=== PATIENT | female | born 2005 | race Caucasian/White ===

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

== ENCOUNTER → 2025-06-16 | Outpatient (CLI) | payer OTHER, SELFPAY ==
--- OUTSIDE RECORDS SUMMARY | 2025-06-16 10:27 | XMS RPT_ITS | CCD ---
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 measuring 0.3 x 0.2 x 0.1 cm. The specimen is submitted in toto in one cassette. LMP Normal [facility] MR Ankle - left WO contrasto n 07-02-2023 IMPRESSION: 1. Negative for internal derangement of the ankle. 2. Os trigonum without evidence of stress changes. 3. Small ganglion cyst in the posterior ankle. Transcribe Date/Time: Jul 02 2023 8:36A Dictated by: BRENDA COATS MD This examination was interpreted and the report reviewed and electronically signed by: BRENDA COATS MD on Jul 02 2023 9:04AM EST Thank you for allowing us to participate in the care of your patient. Should there be any questions regarding this interpretation, please call . If you are unable to reach us at the number above, please feel free to contact [facility] at [phone]. DIVISION OF RADIOLOGY * * *Final Report* * * DATE OF EXAM: Jul 01 2023 3:00PM DUM 0163 - MRI ANKLE WO IVCON LT / PROCEDURE REASON: Chronic left Ankle pain * * * * Physician Interpretation * * * * RESULT: CLINICAL HISTORY: Chronic left Ankle pain COMPARISON: Ankle radiographs 06/15/2023 PROCEDURE COMMENTS: MRI ANKLE WO IVCON LT FINDINGS: LIGAMENTS: SYNDESMOTIC LIGAMENTS: Normal. ANTERIOR TALOFIBULAR LIGAMENT: Normal. POSTERIOR TALOFIBULAR LIGAMENT: Normal. CALCANEOFIBULAR LIGAMENT: Normal. DELTOID LIGAMENT: Normal. SPRING LIGAMENT: Normal. TENDONS: POSTEROLATERAL (Achilles & peroneal tendons): Normal. POSTERIOR (tibialis posterior, flexor digitorum, flexor hallucis): Normal. ANTERIOR (tibialis anterior, extensor hallucis, extensor digitorum): Normal. JOINTS: TIBIOTALAR: Normal. SUBTALAR: Normal. CALCANEONAVICULAR/TALONAV ICULAR: Normal. ARTICULAR CARTILAGE: Normal. MARROW: Normal. There is an os trigonum without evidence of stress changes. GROWTH PLATES: Closed. JOINT EFFUSION: Small talonavicular effusion. No tibiotalar effusion. MUSCLES/SOFT TISSUES: 8 x 7 x 11 mm cystic structure in the posterior ankle. This is posterior to the distal fibula and superolateral to the os trigonum. DIVISION OF RADIOLOGY Provider, [facility] - 07/02/2023 * * *Final Report* * * DATE OF EXAM: Jul 01 2023 3:00PM DUM 0163 - MRI ANKLE WO IVCON LT / PROCEDURE REASON: Chronic left Ankle pain * * * * Physician Interpretation * * * * RESULT: CLINICAL HISTORY: Chronic left Ankle pain COMPARISON: Ankle radiographs 06/15/2023 PROCEDURE COMMENTS: MRI ANKLE WO IVCON LT FINDINGS: LIGAMENTS: SYNDESMOTIC LIGAMENTS: Normal. ANTERIOR TALOFIBULAR LIGAMENT: Normal. POSTERIOR TALOFIBULAR LIGAMENT: Normal. CALCANEOFIBULAR LIGAMENT: Normal. DELTOID LIGAMENT: Normal. SPRING LIGAMENT: Normal. TENDONS: POSTEROLATERAL (Achilles & peroneal tendons): Normal. POSTERIOR (tibialis posterior, flexor digitorum, flexor hallucis): Normal. ANTERIOR (tibialis anterior, extensor hallucis, extensor digitorum): Normal. JOINTS: TIBIOTALAR: Normal. SUBTALAR: Normal. CALCANEONAVICULAR/TALONAV ICULAR: Normal. ARTICULAR CARTILAGE: Normal. MARROW: Normal. There is an os trigonum without evidence of stress changes. GROWTH PLATES: Closed. JOINT EFFUSION: Small talonavicular effusion. No tibiotalar effusion. MUSCLES/SOFT TISSUES: 8 x 7 x 11 mm cystic structure in the posterior ankle. This is posterior to the distal fibula and superolateral to the os trigonum. IMPRESSION IMPRESSION: 1. Negative for internal derangement of the ankle. 2. Os trigonum without evidence of stress changes. 3. Small ganglion cyst in the posterior ankle. Transcribe Date/Time: Jul 02 2023 8:36A Dictated by: BRENDA COATS MD This examination was interpreted and the report reviewed and electronically signed by: BRENDA COATS MD on Jul 02 2023 9:04AM EST Thank you for allowing us to participate in the care of your patient. Should there be any questions regarding this interpretation, please call . If you are unable to reach us at the number above, please feel free to contact [facility] at [phone]. [facility] MR Ankle - left WO contrastO rdered By: [facility] Provider on 07-02-2023 [facility] MR Ankle - left WO contrasto n 07-01-2023 Radiology Study observation (narrative) [facility] MRI ANKLE WO IVCON LTon 06-19 MRI ANKLE WO IVCON LT * * *Final Report* * * DATE OF EXAM: Jul 01 2023 3:00PM DUM 0163 - MRI ANKLE WO IVCON LT / PROCEDURE REASON: Chronic left Ankle pain * * * * Physician Interpretation * * * * RESULT: CLINICAL HISTORY: Chronic left Ankle pain COMPARISON: Ankle radiographs 06/15/2023 PROCEDURE COMMENTS: MRI ANKLE WO IVCON LT FINDINGS: LIGAMENTS: SYNDESMOTIC LIGAMENTS: Normal. ANTERIOR TALOFIBULAR LIGAMENT: Normal. POSTERIOR TALOFIBULAR LIGAMENT: Normal. CALCANEOFIBULAR LIGAMENT: Normal. DELTOID LIGAMENT: Normal. SPRING LIGAMENT: Normal. TENDONS: POSTEROLATERAL (Achilles and peroneal tendons): Normal. POSTERIOR (tibialis posterior, flexor digitorum, flexor hallucis): Normal. ANTERIOR (tibialis anterior, extensor hallucis, extensor digitorum): Normal. JOINTS: TIBIOTALAR: Normal. SUBTALAR: Normal. CALCANEONAVICULAR/TALONAV ICULAR: Normal. ARTICULAR CARTILAGE: Normal. MARROW: Normal. There is an os trigonum without evidence of stress changes. GROWTH PLATES: Closed. JOINT EFFUSION: Small talonavicular effusion. No tibiotalar effusion. MUSCLES/SOFT TISSUES: 8 x 7 x 11 mm cystic structure in the posterior ankle. This is posterior to the distal fibula and superolateral to the os trigonum. IMPRESSION: 1. Negative for internal derangement of the ankle. 2. Os trigonum without evidence of stress changes. 3. Small ganglion cyst in the posterior ankle. Transcribe Date/Time: Jul 02 2023 8:36A Dictated by: BRENDA COATS MD This examination was interpreted and the report reviewed and electronically signed by: BRENDA COATS MD on Jul 02 2023 9:04AM EST Thank you for allowing us to participate in the care of your patient. Should there be any questions regarding this interpretation, please call . If you are unable to reach us at the number above, please feel free to contact [facility] at [phone]. [id number] Normal [facility] XR ANKLE 3V AP/LAT/OBL LTon 06-15-2023 XR ANKLE 3V AP/LAT/OBL LT * * *Final Report* * * DATE OF EXAM: Jun 15 2023 10:17AM [id number] [id number] - XR ANKLE 3V AP/LAT/OBL LT / PROCEDURE REASON: Pain * * * * Physician Interpretation * * * * TECHNIQUE: XR ANKLE 3V AP/LAT/OBL LT HISTORY: Pain COMPARISON: None RESULT: The ankle mortise and joint spaces are normal. Normal bone alignment. No evidence of fracture. No tibiotalar joint effusion. No soft tissue swelling. IMPRESSION: No osseous abnormality in the left ankle. Policy Change Clerk: PSCB Transcribe Date/Time: Jun 15 2023 10:16A Dictated by : OTILIA LORENZO MD This examination was interpreted and the report reviewed and electronically signed by: OTILIA LORENZO MD on Jun 15 2023 10:20AM EST [id number] Normal [facility] C Reactive Protein, Serumon 03-17-2023 CRP [Mass/Vol] 0.37 mg/dL MG-Pediatr i [facility] A Work Phone: Comment on above: REF VALUE< 1.00 C-REACTIVE PROTEINon 023 C-REACTIVE PROTEIN 0.37 mg/dL Normal [facility]3] Comment on above: Result Comment: REF VALUE < 1.00 Performed By: #### C RP #### [address] [address] CBC AND DIFFERENTIALon 03-17 % AUTOMATED IMMATURE GRAN 0.2 % Normal 0.0 - 1.0 [facility]3] Comment on above: Result Comment: Nurys ture Granulocyte Count (IG) includes promyelocytes, myelocytes and metamyelocytes but does not include bands. Percent differential counts (%) should be interpreted in the context of the absolute cell counts (cells/L). Performed By: #### C BCDF #### [address] [address] Basophils (Bld) [#/Vol] 0.03 10*3/uL Normal 0.00 - 0.10 [facility]3] Comment on above: Performed By: #### C BCDF #### [address] [address] Basophils/100 WBC (Bld) 0.6 % Normal 0.0 - 1.0 [facility] Comment on above: Performed By: #### C BCDF #### [address] [address] Eosinophils (Bld) [#/Vol] 0.08 10*3/uL Normal 0.00 - 0.70 [facility]3] Comment on above: Performed By: #### C BCDF #### [address] [place] [address] Eosinophils/100 WBC (Bld) 1.6 % Normal 0.0 - 5.0 [facility]3] Comment on above: Performed By: #### C BCDF #### [address] [place] [address] Erythrocyte distribution width (RBC) [Ratio] 12.1 % Normal 11.5 - 14.5 [facility]3] Comment on above: Performed By: #### C BCDF #### [address] [place] [address] Hematocrit (Bld) [Volume fraction] 40.0 % Normal 36.0 - 46.0 [facility]3] Comment on above: Performed By: #### C BCDF #### [address] [place] [address] Hemoglobin (Bld) [Mass/Vol] 13.1 g/dL Normal 12.0 - 16.0 [facility]3] Comment on above: Performed By: #### C BCDF #### [address] [place] [address] Lymphocytes (Bld) [#/Vol] 0.87 10*3/uL Low 1.80 - 4.80 [facility]3] Comment on above: Performed By: #### C BCDF #### [address] [place] [address] Lymphocytes/100 WBC (Bld) 17.9 % Normal 28.0 - 48.0 [facility]3] Comment on above: Performed By: #### C BCDF #### [address] [place] [address] MCHC (RBC) [Mass/Vol] 32.8 g/dL Normal 31.0 - 37.0 [facility]3] Comment on above: Performed By: #### C BCDF #### [address] [place] [address] MCV (RBC) [Entitic vol] 90 fL Normal 78 - 102 [facility] Comment on above: Performed By: #### C BCDF #### [address] [place] [address] Monocytes (Bld) [#/Vol] 0.65 10*3/uL Normal 0.10 - 1.00 [facility]3] Comment on above: Performed By: #### C BCDF #### [address] [place] [address] Monocytes/100 WBC (Bld) 13.4 % Normal 3.0 - 9.0 [facility] Comment on above: Performed By: #### C BCDF #### [address] [place] [address] Neutrophils (Bld) [#/Vol] 3.21 10*3/uL Normal 1.20 - 7.70 [facility]3] Comment on above: Performed By: #### C BCDF #### [address] [place] [address] Neutrophils/100 WBC (Bld) 66.3 % Normal 33.0 - 69.0 [facility]3] Comment on above: Performed By: #### C BCDF #### [address] [place] [address] NUCLEATED RBC 0.0 /100 WBC Normal 0.0 - 0.0 [facility]3] Comment on above: Performed By: #### C BCDF #### [address] [place] [address] Platelets (Bld) [#/Vol] 256 10*3/uL Normal 150 - 400 [facility]3] Comment on above: Performed By: #### C BCDF #### [address] [place] [address] RBC 4.45 x10E12/L Normal 4.10 - 5.20 [facility]3] Comment on above: Performed By: #### C BCDF #### [address] [place] [address] WBC (Bld) [#/Vol] 4.9 10*3/uL Normal 4.5 - 13.5 [facility]3] Comment on above: Performed By: #### C BCDF #### [address] [place] [address] COMPREHENSIVE PANELon 2022 Albumin [Mass/Vol] 4.6 g/dL Normal 3.4 - 5.0 [facility]3] Comment on above: Performed By: #### C MP #### [address] [place] [address] ALP [Catalytic activity/Vol] 60 U/L Normal 33 - 80 [facility]3] Comment on above: Performed By: #### C MP #### [address] [place] [address] ALT [Catalytic activity/Vol] 17 U/L Normal 3 - 28 [facility]3] Comment on above: Result Comment: Mariposa ents treated with Sulfasalazine may generate falsely decreased results for ALT. Performed By: #### C MP #### [address] [place] [address] Anion gap [Moles/Vol] 12 mmol/L Normal 10 - 30 [facility]3] Comment on above: Performed By: #### C MP #### [address] [place] [address] AST [Catalytic activity/Vol] 22 U/L Normal 9 - 24 [facility]3] Comment on above: Performed By: #### C MP #### [address] [place] [address] Bilirubin [Mass/Vol] 0.4 mg/dL Normal 0.0 - 0.9 [facility]3] Comment on above: Performed By: #### C MP #### [address] [place] [address] Calcium [Mass/Vol] 9.5 mg/dL Normal 8.5 - 10.7 [facility]3] Comment on above: Performed By: #### C MP #### [address] [place] [address] Chloride [Moles/Vol] 104 mmol/L Normal 98 - 107 [facility]3] Comment on above: Performed By: #### C MP #### [address] [place] [address] Creatinine [Mass/Vol] 0.72 mg/dL Normal 0.50 - 0.90 [facility]3] Comment on above: Performed By: #### C MP #### [address] [place] [address] Glucose [Mass/Vol] 79 mg/dL Normal 74 - 99 [facility]3] Comment on above: Performed By: #### C MP #### [address] [place] [address] HCO3 (Bld) [Moles/Vol] 25 mmol/L Normal 18 - 27 [facility]3] Comment on above: Performed By: #### C MP #### [address] [place] [address] Potassium [Moles/Vol] 4.0 mmol/L Normal 3.5 - 5.3 [facility]3] Comment on above: Performed By: #### C MP #### [address] [place] [address] Protein [Mass/Vol] 7.6 g/dL Normal 6.2 - 7.7 [facility]3] Comment on above: Performed By: #### C MP #### [address] [place] [address] Sodium [Moles/Vol] 137 mmol/L Normal 136 - 145 [facility]3] Comment on above: Performed By: #### C MP #### [address] [place] [address] Urea nitrogen [Mass/Vol] 15 mg/dL Normal 6 - 23 [facility]3] Comment on above: Performed By: #### C MP #### [address] [place] [address] Complete Blood Count + Diffe rentialon 03-17-2023 Basophils/100 WBC (Bld) 0.6 % 0.0 - 1.0 M [facility] A Work Phone: Erythrocyte distribution width (RBC) [Ratio] 12.1 % See Below [facility] A Work Phone: Comment on above: Reference Range: 11. 5 - 14.5 Hematocrit (Bld) [Volume fraction] 40.0 % See Below -Pediatri [facility] A Work Phone: Comment on above: Reference Range: 36. 0 - 46.0 Hemoglobin (Bld) [Mass/Vol] 13.1 g/dL See Below -Pediatri [facility] A Work Phone: Comment on above: Reference Range: 12. 0 - 16.0 Lymphocytes/100 WBC (Bld) 17.9 % See Below -Pediatri [facility] A Work Phone: Comment on above: Reference Range: 28. 0 - 48.0 MCHC (RBC) [Mass/Vol] 32.8 g/dL See Below - Pediatri [facility] A Work Phone: Comment on above: Reference Range: 31. 0 - 37.0 MCV (RBC) [Entitic vol] 90 fL 78 - 102 M Pediatri [facility] A Work Phone: Monocytes/100 WBC (Bld) 13.4 % 3.0 - 9.0 M Pediatri [facility] A Work Phone: Neutrophils/100 WBC (Bld) 66.3 % See Below -Pediatri [facility] A Work Phone: Comment on above: Reference Range: 33. 0 - 69.0 Platelets (Bld) [#/Vol] 256 10*3/uL 150 - 400 MG-Pediatri [facility] A Work Phone: RBC (Bld) [#/Vol] 4.45 {x10E12/L} See Below [facility] -[facility]ri [facility] A Work Phone: Comment on above: Reference Range: 4.1 0 - 5.20 WBC (Bld) [#/Vol] 4.9 10*3/uL 4.5 - 13.5 MG-Ped iatri [facility] A Work Phone: Complete Blood Count + Differential 0.03 {x10E9/L} See Below [facility] A Work Phone: Comment on above: Reference Range: 0.0 0 - 0.10 Complete Blood Count + Differential 0.08 {x10E9/L} See Below [facility] A Work Phone: Comment on above: Reference Range: 0.0 0 - 0.70 Complete Blood Count + Differential 0.65 {x10E9/L} See Below [facility] A Work Phone: Comment on above: Reference Range: 0.1 0 - 1.00 Complete Blood Count + Differential 0.87 {x10E9/L} below low threshold See Below [facility] A Work Phone: Comment on above: Reference Range: 1.8 0 - 4.80 Complete Blood Count + Differential 3.21 {x10E9/L} See Below [facility] A Work Phone: Comment on above: Reference Range: 1.2 0 - 7.70 Complete Blood Count + Differential 1.6 % 0.0 - 5.0 [facility] A Work Phone: Complete Blood Count + Differential 0.2 % 0.0 - 1.0 [facility] A Work Phone: Comment on above: Immature Granulocyte Count (IG) includes promyelocytes, myelocytes and metamyelocytes but does not include bands. Percent differential counts (%) should be interpreted in the context of the absolute cell counts (cells/L). Complete Blood Count + Differential 0.0 {/100_WBC} 0.0 - 0.0 [facility] A Work Phone: Laboratory - Chemistry and C hemistry - challengeon 03-17-2023 Albumin BCP dye [Mass/Vol] 4.6 g/dL 3.4 - 5.0 [facility] A Work Phone: ALP [Catalytic activity/Vol] 60 U/L 33 - 80 [facility] A Work Phone: ALT With P-5'-P [Catalytic activity/Vol] 17 U/L 3 - 28 [facility]-Pedi atri [facility] A Work Phone: Comment on above: Patients treated wit h Sulfasalazine may generate falsely decreased results for ALT. Anion gap [Moles/Vol] 12 mmol/L 10 - 30 [facility]- Pediatri [facility] A Work Phone: AST With P-5'-P [Catalytic activity/Vol] 22 U/L 9 - 24 [facility]edi atri [facility] A Work Phone: Bilirubin [Mass/Vol] 0.4 mg/dL 0.0 - 0.9 MG-P ediatri [facility] A Work Phone: Calcium [Mass/Vol] 9.5 mg/dL 8.5 - 10.7 MG-Ped iatri [facility] A Work Phone: Chloride [Moles/Vol] 104 mmol/L 98 - 107 MG-P ediatri [facility] A Work Phone: CO2 [Moles/Vol] 25 mmol/L 18 - 27 [facility] ri [facility] A Work Phone: Creatinine [Mass/Vol] 0.72 mg/dL See Below MG- Pediatri [facility] A Work Phone: Comment on above: Reference Range: 0.5 0 - 0.90 Glucose [Mass/Vol] 79 mg/dL 74 - 99 [facility] iatri [facility] A Work Phone: Potassium [Moles/Vol] 4.0 mmol/L 3.5 - 5.3 MG- [facility]ri [facility] A Work Phone: Protein [Mass/Vol] 7.6 g/dL 6.2 - 7.7 [facility]-Ped iatri [facility] A Work Phone: Sodium [Moles/Vol] 137 mmol/L 136 - 145 [facility]-Ped iatri [facility] A Work Phone: Urea nitrogen [Mass/Vol] 15 mg/dL 6 - 23 MG-Pediatri [facility] A Work Phone: Peds Gastroenterology - Init nazanincristhiann 03-17-2023 Peds Gastroenterology - Initial Diagnoses/Problems Assessed Abdominal pain (789.00) (R10.9) Orders Abdominal pain Start: Dicyclomine HCl - 10 MG Oral Capsule; TAKE 1 CAPSULE 3-4 TIMES DAILY NEEDED FOR ABDOMINAL pain Rx By: Danna Hand; Dispense: 15 Days ; #:60 Capsule; Refill: 3;For: Abdominal pain; INDER = N; Verified Transmission to [address]; Last Updated By: [employer]; 03/17/2023 11:24:30 AM C Reactive Protein, Serum; Status:Active; Requested for:17Mar2023; Perform:Lab Services - Lab To Draw (Blood Test); Due:15Jun2023;Ordered; For:Abdominal pain; Ordered By:Danna Hand; Start: Famotidine 20 MG Oral Tablet; TAKE 1 TABLET BY MOUTH TWICE DAILY Rx By: Danna Hand; Dispense: 30 Days ; #:60 Tablet; Refill: 4;For: Abdominal pain; INDER = N; Verified Transmission to [address]; Last Updated By: [employer]; 03/17/2023 11:24:32 AM Complete Blood Count + Differential; Status:Active; Requested for:17Mar2023; Perform:Lab Services - Lab To Draw (Blood Test); Due:15Jun2023;Ordered; For:Abdominal pain; Ordered By:Danna Hand; Comprehensive Metabolic Panel; Status:Active; Requested for:17Mar2023; Perform:Lab Services - Lab To Draw (Blood Test); Due:15Jun2023;Ordered; For:Abdominal pain; Ordered By:Danna Hand; Sedimentation Rate, Erythrocyte; Status:Active; Requested for:17Mar2023; Perform:Lab Services - Lab To Draw (Blood Test); Due:15Jun2023;Ordered; For:Abdominal pain; Ordered By:Danna Hand; TISSUE TRANSGLUTAMINIASE AB, IGA WITH ASSESSMENT OF TOTAL IgA; Status:Active; Requested for:[id number]; Perform:Lab Services - Lab To Draw (Blood Test); Due:[id number];Ordered; For:Abdominal pain; Ordered By:Danna Hand; Patient Discussion/Summary It was nice to see LENARD in clinic today. Please call or email the GI office at [facility] if you have any questions or concerns. Please ask to speak with my nurse, Tameka Office number: [phone] Email: [email or web address] Fax number: [phone] To schedule an appointment, call [phone] Schedule a follow-up Pediatric Gastroenterology appointment with DR. HAND in 4 months. 1. Obtain laboratory tests. If there are any concerns, you will receive a call with the results. If the tests are normal and there is no change in plan, you will receive the results by mail or patient portal. 2. Stop omeprazole 3. Take Pepcid 20mg twice daily 4. Take Bentyl as needed for belly pain 5. If no improvement after one month, call my office and we will schedule the scope Provider Impressions LENARD CONTRERAS was in the [facility] for abdominal pain. Differential is broad - includes GERD, gastritis, PUD, celiac disease, H. pylori, FGID. Recommend trial of Pepcid and Bentyl as well as blood work. If no improvement will plan for upper endoscopy for further evaluation. Rest of plan in discussion summary. Danna Hand MD Pediatric Gastroenterology, Hepatology, and Nutrition History of Present Illness LENARD CONTRERAS is a 17 year-old female who was seen in the [facility] on Mar 17, 2023 at the request of Dr. Junito Mason for the chief complaint of abdominal pain. A report with my findings is being sent via written or electronic means to Dr. Junito Mason with my recommendations for treatment. History was obtained from mother and patient. Abdominal pain has been going on for many years ago and has gotten worse recently such that she went to her PCP for further evaluation. She was prescribed omeprazole 20mg once daily with some improvement but not resolution of her symptoms. She has been on the medication for 2-3 months now.. In the past she took out fried foods 5-6 years ago and also limited dairy and took Lactaid pills which helped for a couple of weeks. Other food triggers include caffeine, fried and greasy foods. Pain occurs at least once a day and can occur any time of the day and located diffusely. No vomiting, diarrhea, constipation, blood in stool, weight loss or difficulty gaining weight. No dysphagia. She is also on a probiotic - culturelle FH: great grandmother with bleeding ulcers. No family history of celiac disease, iBD (although great-grandmother had intestinal ulcers s/p colectomy) SH: lives at home with parents, senior year in [employer]: healthy Omeprazole 20mg once a day Review of Systems Constitutional: no change in appetite and no weight loss. Eyes: no sclera icterus and no discharge. ENT: no sinus or nasal congestion. Cardiovascular: no edema. Respiratory: no cough. Gastrointestinal: as noted in HPI. Genitourinary: no dysuria. Musculoskeletal: no joint swelling. Integumentary: no rashes. Neurological: no dizziness. Hematologic/Lymphatic: no excessive bruising. Psychiatric: no sleep disturbance. All other systems have been rev (more content not included)... Normal [employer] SEDIMENTATION RATE, ERYTHROC YTEon 03-17-2023 SEDIMENTATION RATE, ERYTHROCYTE 10 mm/h Normal 0 - 20 [facility] (formerly [facility])[3] Comment on above: Performed By: #### E SRWS #### [facility] [address] [place] [address] Sedimentation Rate, Erythroc yteon 03-17-2023 ESR (Bld) [Velocity] 10 mm/h 0 - 20 MG-P ediatri [facility] A Work Phone: TISSUE TRANSGLUTAMINIASE AB, IGA WITH ASSESSMENT OF TOTAL IgAon 03-17-2023 tTG IgA IA Qn (S) <1 0 - 14 MG-Pedi atri [facility] A Work Phone: Comment on above: Celiac disease is un likely. False negative Tissue Transglutaminase Antibody, IgA results can occur in approximately 10% of patients with celiac disease, patients already adhering to a gluten-free diet, or patients with IgA deficiency. TTG AB,IGAon 03-17-2023 TTG AB,IGA <1 Normal 0 - 14 [facility] ([facility])[3] Comment on above: Result Comment: Abbey ac disease is unlikely. False negative Tissue Transglutaminase Antibody, IgA results can occur in approximately 10% of patients with celiac disease, patients already adhering to a gluten-free diet, or patients with IgA deficiency. Performed By: #### T TGA #### [facility] [address] [place] [address] CNOVon 01-13-2023 CNOV Office Visit (PEDSWS ) ----- LENARD CONTRERAS ([id number]) 5 F Date Time Provider Department 01/13/23 11:00 AM SHAMEKA SAUCEDO During your visit today, we recorded the following information about you: Temperature Pulse Respiration Blood pressure 98 degrees 72/minute 16/minute 120/76 Weight Height 69 kg 1.659 m Shameka Saucedo MD 01/13/2023 5:26 PM Signed WELL VISIT PEDIATRIC 14-17 YRS OLD Lenard is a 17 year old who presents today for well exam accompanied by her mother. 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 amoxicillin (AMOXIL) 500 mg capsule Take 500 mg by mouth once daily. Adapalene 0.3 % gel Apply to affected area once daily. mv,Ca,min/iron/FA/guarana /caff (ONE-A-DAY WOMEN'S ACTIVE ORAL) Take by mouth. cholecalciferol, vitamin D3, (VITAMIN D3 ORAL) Take by mouth. ascorbic acid (CLARK-C ORAL) Take by mouth. lactobacillus rhamnosus (CULTURELLE) 10 billion cell capsule Take 1 capsule by mouth once daily. Azelaic Acid 15 % gel iron bis-gly/FA/C/B12/Ca/succ (IRON 21/7 ORAL) Take 1 Dose Pack by mouth once daily. (Patient not taking: Reported on 01/02/2023) albuterol HFA (PROVENTIL HFA, VENTOLIN HFA) 90 mcg/actuation inhaler Inhale 2 Puffs as instructed every 4 hours as needed for wheezing/shortness of breath. fluticasone (FLONASE) 50 mcg/actuation nasal spray Use 1 Hampton in each nostril daily at bedtime. loratadine (CLARITIN) 10 mg tablet Take 10 mg by mouth once daily. Using as needed FAMILY HISTORY Problem Relation Age of Onset Allergies Mother None Father Diabetes Father Cousin-juvenile diabetes Cancer Father Great aunt-Small cell lumg Social History Social History Narrative Not on file Smoking Exposure: Does your child spend a significant amount of time in the care of anyone who smokes? No School: Presently in 11th grade. No academic or school related concerns No behavioral concerns Any concerns regarding peer interactions? No Physical Activity: more than 1 hour of physical activity per day Screen Time totaling more than 2 hours of screen time per day. Fainting, dizziness, significant shortness of breath or chest pain with sports or exercise: No History of concussion in the last year: No Safety: Reviewed seat belts, bike helmets, and smoke detectors Diet: -Diet is well balanced and appropriate for age -Fruits and veggies are eaten with most meals -Drinks water daily -Regularly eats meals with family Elimination: no concerns, normal size and consistency Dental: dental care current Sleep: -no sleep concerns Yes, cell phone turned off before bedtime- Yes -computer in bedroom Vision: No vision concerns Hearing: No hearing concerns Growth: No growth concerns Gynecological history: LMP: 12/31/22 Cycles are regular and last 5 days. Dysmenorrhea: moderate Heavy periods: yes Substance use: none Sexual History: Attraction: male Sexually Active: No Body image: sometimes likes body Screening tools reviewed and discussed with patient/[id number] and Social Determinants of Health. Please see Patient Entered Data. SDOH: Food Insecurity: Not on file Financial Resource Strain: Not on file Transportation Needs: Not on file Housing Stability: Not on file Discussed SDOH results with patient/family. SDOH needs identified: no concerns identified OBJECTIVE Physical Exam: BP 120/76 Pulse 72 Temp 36.7 ?C (98 ?F) (Temporal) Resp 16 Ht 165.9 cm (5' 5.32) Wt 69 kg (152 lb 3.2 oz) LMP 11/30/2022 BMI 25.08 kg/m? Blood pressure percentiles are 83 % systolic and 88 % diastolic based on the 2017 AAP Clinical Practice Guideline. This reading is in the elevated blood pressure range (BP >= 120/80). 84 %ile (Z= 0.98) based on CDC (Girls, 2-20 Years) BMI-for-age based on BMI available as of 01/13/2023. Last BMI: Wt: 69.9 kg (154 lb) (88 %, Z= 1.16)* BMI: 25.35 kg/(m2) Last 4 Encounter Wt Readings: Date: Wt: 01/02/2023 69.9 kg (154 lb) (88 %, Z= 1.16)* 12/30/2022 70.1 kg (154 lb 9.6 oz) (88 %, Z= 1.17)* 12/19/2022 71.3 kg (157 lb 3.2 oz) (89 %, Z= 1.24)* 06/03/2022 69.3 kg (152 lb 12.8 oz) (88 %, Z= 1.16)* Last 4 Encounter Ht Readings: Date: Ht: 06/03/2022 166 cm (5' 5.35) (69 %, Z= 0.48)* 05/12/2022 166.5 cm (5' 5.55) (71 %, Z= 0.56)* 03/05/2020 164 cm (5' 4.57) (66 %, Z= 0.40)* 07/04/2019 162.6 cm (5' 4) (64 %, Z= 0.35)* General: Well developed, No acute distress Head: normocephalic Eyes: conjunctiv (more content not included)... Normal [facility] 01-12-2023 RENON Telephone (PEDSWS) ----- LENARD CONTRERAS ([id number]) 5 F Date Time Provider Department 01/12/23 JUNITO MASON During your visit today, we recorded the following information about you: Kena Pedro CONDE 01/12/2023 11:24 AM Signed Mom called to say they have had trouble getting the Rx filled at [facility], and insurance was not covering. I called and spoke with the pharmacist and insurance will only cover Omeprazole capsules. I advised mom and she would like pt to try the capsules. Pharmacy info was changed per mom's request. New Rx pended for review. Junito Mason MD 01/12/2023 11:31 AM Signed The following approved medication requests have been transmitted electronically. Requested Prescriptions Signed Prescriptions Disp Refills omeprazole (PRILOSEC) 20 mg capsule 30 capsule 1 Sig: Take 1 capsule by mouth once daily. Authorizing Provider: JUNITO MASON MD Amanda S Mast RN 01/12/2023 11:43 AM Signed Mother notified. Rose Dawson RN Allergies As of Date: 01/12/2023 Noted Allergy Reaction CATS 04/12/2012 3 - Cough DUST 04/12/2012 3 - Cough SEASONAL ALLERGIES 04/12/2012 3 - Cough Date Reviewed: 01/02/2023 Reviewed by: Shameka Cortez LPN - Fully Assessed Reason for Visit: Medication Problem [65] Order(s):omeprazole (PRILOSEC) 20 mg capsuleTake 1 capsule by mouth once daily.Disp: 30 capsuleRfl: 1 Prescriptions as of 01/12/2023 - omeprazole (PRILOSEC) 20 mg capsule Take 1 capsule by mouth once daily. - amoxicillin (AMOXIL) 500 mg capsule Take 500 mg by mouth once daily. - Adapalene 0.3 % gel Apply to affected area once daily. - mv,Ca,min/iron/FA/guarana /caff (ONE-A-DAY WOMEN'S ACTIVE ORAL) Take by mouth. - cholecalciferol, vitamin D3, (VITAMIN D3 ORAL) Take by mouth. - ascorbic acid (CLARK-C ORAL) Take by mouth. - lactobacillus rhamnosus (CULTURELLE) 10 billion cell capsule Take 1 capsule by mouth once daily. - Azelaic Acid 15 % gel - iron bis-gly/FA/C/B12/Ca/succ (IRON 21/7 ORAL) Take 1 Dose Pack by mouth once daily. - albuterol HFA (PROVENTIL HFA, VENTOLIN HFA) 90 mcg/actuation inhaler Inhale 2 Puffs as instructed every 4 hours as needed for wheezing/shortness of breath. - fluticasone (FLONASE) 50 mcg/actuation nasal spray Use 1 [place] in each nostril daily at bedtime. - loratadine (CLARITIN) 10 mg tablet Take 10 mg by mouth once daily. Using as needed Problem List As Of Date 01/12/2023 Noted Resolved Mild intermittent asthma without complication [*05/16/2015 03/03/2019 Flat feet [M21.41, M21.42] 03/01/2018 Prescriptions ordered this encounter Disp Refills Start End OMEPRAZOLE 20 MG CAPSULE,DELAYED REL* 30 c* 1 01/12/2023 02/11/2023 Route: ORAL Sig: Take 1 capsule by mouth once daily. Medications Discontinued During This Encounter Prescriptions - omeprazole 20 mg disintegrating tablet (PriLOSEC) (Discontinued) Take 1 tablet by mouth once daily. Encounter Status:Closed by ROSE DAWSON RN on 01/12/23 [facility] CNOVon 01-02-2023 CNOV Office Visit (PEDSWS ) ----- LENARD CONTRERAS ([id number]) 5 F Date Time Provider Department 01/02/23 3:30 PM JUNITO MASON During your visit today, we recorded the following information about you: Temperature Pulse Respiration Weight 98.3 degrees 80/minute 18/minute 69.9 kg Junito Mason MD 01/03/2023 10:17 AM Signed PEDIATRIC ABDOMINAL PAIN VISIT Patient interviewed and examined with completely independent history and physical at bedside. Note above edited to reflect my findings and plan Junito Mason MD Lenard Contreras is a 17 year old accompanied by mother for abdominal pain. History was obtained from: mother and patient She had discussed abdominal pain in May of this year. At that time anxiety was thought to be a component. Symptoms have continued despite not having relationship to anxious feelings. Pain is described as: aching Onset of pain / discomfort: 9 month(s) ago Location: Periumbilical without radiation Severity: 4 to 8/10 When does it occur: 20 minutes after meals Frequency: After every meal Duration: 30 - 60 minutes Associated Symptoms: diarrhea regurgitation symptoms Lenard's attendance at school or social activities has been affected by her pain. Pain awakens patient from sleep: No Aggravating factors: movement, spicy foods, fatty foods, and coffee Symptoms associated w/ dairy intake: No Symptoms associated with fructose: No Symptoms associated w/ intake of other specific foods or meals: No Food Intake: Appropriate with adequate calcium intake Appetite changes: No Alleviating factors: none, pain goes away with time. Used TUMS for heartburn which doesn't help. Stool pattern at present time: 1-2 BM's per day Any change in BM pattern since pain started: No Difficulty/ straining/ pain w/ BM: No Gross blood in BM: No, Denies melena Nausea/ vomiting: No GERD symptoms: Yes Unintentional, abnormal wt loss or gain: No Exposures: Travel: No Camping / outdoors: No [place] / streams: No Raw foods: No Pets / reptile exposure: No Known stressors at home, school, social: No Family history of GI problems: Positive for: Great Grandmother had bleeding peptic ulcer, grandmother had diverticulitis Review Of Systems: Fever: No Rashes: No Joint pain: No Headache: No Respiratory: No cough, hemoptysis, asthma, recent chest infection, wheezing Cardiovascular: No history of chest pain, palpitation, orthopnea, cyanosis, pedal edema Genitourinary: No burning with urination, blood in urine or incontinence and No change in vaginal discharge, burning, dryness or itching Social history: non-contributory Alcohol Intake: No Drug use/abuse: No Depression: No Previous DiagnosticTests reviewed: No PAST MEDICAL HISTORY Diagnosis Date Jaundice at NEGATIVE MEDICAL HISTORY normal color vision Period disorder 01/19/2019 ACTIVE PROBLEM LIST Flat Feet - 03/01/2018 PAST SURGICAL HISTORY Procedure Laterality Date NONE FAMILY HISTORY Problem Relation Age of Onset Allergies Mother None Father Diabetes Father Cousin-juvenile diabetes Cancer Father Great aunt-Small cell lumg ALLERGIES Allergen Reactions Cats Cough Dust Cough Seasonal Allergies Cough MEDICATIONS: amoxicillin (AMOXIL) 500 mg capsule Take 500 mg by mouth once daily. Adapalene 0.3 % gel Apply to affected area once daily. mv,Ca,min/iron/FA/guarana /caff (ONE-A-DAY WOMEN'S ACTIVE ORAL) Take by mouth. cholecalciferol, vitamin D3, (VITAMIN D3 ORAL) Take by mouth. ascorbic acid (CLARK-C ORAL) Take by mouth. lactobacillus rhamnosus (CULTURELLE) 10 billion cell capsule Take 1 capsule by mouth once daily. Azelaic Acid 15 % gel albuterol HFA (PROVENTIL HFA, VENTOLIN HFA) 90 mcg/actuation inhaler Inhale 2 Puffs as instructed every 4 hours as needed for wheezing/shortness of breath. fluticasone (FLONASE) 50 mcg/actuation nasal spray Use 1 [place] in each nostril daily at bedtime. iron bis-gly/FA/C/B12/Ca/succ (IRON /7 ORAL) Take 1 Dose Pack by mouth once daily. (Patient not taking: Reported on 01/02/2023) loratadine (CLARITIN) 10 mg tablet Take 10 mg by mouth once daily. Using as needed PHYSICAL EXAMINATION: Pulse 80 Temp 36.8 ?C (98.3 ?F) (Temporal Artery) Resp 18 Wt 69.9 kg (154 lb) LMP 11/30/2022 GENERAL: alert and active in no apparent distress CARDIOVASCULAR: Normal rate, regular rhythm, no murmur LUNGS: clear to auscultation bilaterally, good air exchange, no retractions ABDOMEN: soft, nondistended, normal bowel sounds. Tenderness: none Masses: none Organomegaly: none Rectal: deferred ASSESSMENT/PLAN: Lenard Contreras is a 17 year old female who presents with abdominal pain. Assessment - History is consistent with a peptic ulcer Plan - Start trial of 20 mg omeprazole daily for 2-4 weeks. Instructed patient to call office if pain does n (more content not included)... Normal [facility] CNOVon 12-30-2022 CNOV Office Visit (UCWSTR ) ----- LENARD CONTRERAS ([id number]) 5 F Date Time Provider Department 12/30/22 9:45 AM JENNYOCHOA VELAZQUEZ [facility] During your visit today, we recorded the following information about you: Temperature Pulse Respiration Blood pressure 98 degrees 81/minute 18/minute 122/72 Weight 70.1 kg Ochoa Jorge, ROSALIE.BOX BLANK MACHINE OPERATOR HELPER 12/30/2022 10:08 AM Signed Subjective HPI Nontoxic female presents urgent care chief complaint sore throat. Duration of symptoms 3 days. Associated symptoms sore throat woke up this morning had a rash around her mouth palms of hands and face. States rash is painful. No OTC medication use. Is currently on amoxicillin 500 mg daily. Prescribed by dermatology. Denies any fever body aches chills productive cough chest pain shortness of breath pleuritic pain hemoptysis nausea vomiting abdominal pain change in bowel or bladder habits. Past medical history prescription medication use and allergies reviewed. .Patient presents with: Sore Throat: ST x 3 days and rash around mouth and eyes x 1 day PAST MEDICAL HISTORY Diagnosis Date Jaundice at NEGATIVE MEDICAL HISTORY normal color vision Period disorder 01/19/2019 PAST SURGICAL HISTORY Procedure Laterality Date NONE ALLERGIES Cats, Dust, and Seasonal Allergies MEDICATIONS amoxicillin (AMOXIL) 500 mg capsule Take 500 mg by mouth once daily. Adapalene 0.3 % gel Apply to affected area once daily. mv,Ca,min/iron/FA/guarana /caff (ONE-A-DAY WOMEN'S ACTIVE ORAL) Take by mouth. cholecalciferol, vitamin D3, (VITAMIN D3 ORAL) Take by mouth. ascorbic acid (CLARK-C ORAL) Take by mouth. lactobacillus rhamnosus (CULTURELLE) 10 billion cell capsule Take 1 capsule by mouth once daily. Azelaic Acid 15 % gel iron bis-gly/FA/C/B12/Ca/succ (IRON 21/ ORAL) Take 1 Dose Pack by mouth once daily. albuterol HFA (PROVENTIL HFA, VENTOLIN HFA) 90 mcg/actuation inhaler Inhale 2 Puffs as instructed every 4 hours as needed for wheezing/shortness of breath. fluticasone (FLONASE) 50 mcg/actuation nasal spray Use 1 [place] in each nostril daily at bedtime. loratadine (CLARITIN) 10 mg tablet Take 10 mg by mouth once daily. Using as needed FAMILY HISTORY Problem Relation Age of Onset Allergies Mother None Father Diabetes Father Cousin-juvenile diabetes Cancer Father Great aunt-Small cell lumg Social History Tobacco Use Smoking status: Never Passive exposure: Never Smokeless tobacco: Never Vaping Use Vaping Use: Never used Substance Use Topics Alcohol use: No Drug use: No BP 122/72 Pulse 81 Temp 36.7 ?C (98 ?F) (Tympanic) Resp 18 Wt 70.1 kg (154 lb 9.6 oz) LMP 11/30/2022 SpO2 97% Review of Systems Constitutional: Negative for chills, fever and malaise/fatigue. HENT: Positive for sore throat. Negative for congestion, ear discharge, ear pain and sinus pain. Eyes: Negative for blurred vision, pain, discharge and redness. Respiratory: Negative for cough, hemoptysis, sputum production, shortness of breath, wheezing and stridor. Cardiovascular: Negative for chest pain. Gastrointestinal: Negative for abdominal pain, diarrhea, nausea and vomiting. Musculoskeletal: Negative for myalgias. Skin: Positive for rash. Negative for itching. Neurological: Positive for headaches. Negative for dizziness. Objective Physical Exam Constitutional: General: She is not in acute distress. Appearance: She is not diaphoretic. HENT: Head: Normocephalic. Jaw: No trismus, tenderness, swelling or pain on movement. Comments: Maculopapule with some vesicles with erythematous base noted highlighted area. Some crusting noted. Nose: Nose normal. Mouth/Throat: Lips: [place]. Mouth: Mucous membranes are moist. Pharynx: Oropharynx is clear. Uvula midline. Posterior oropharyngeal erythema present. No pharyngeal swelling, oropharyngeal exudate or uvula swelling. Tonsils: No tonsillar exudate or tonsillar abscesses. Comments: Erythema with some ulcers noted highlighted area. Eyes: General: Lids are normal. Right eye: No discharge. Left eye: No discharge. Conjunctiva/sclera: Conjunctivae normal. Right eye: Right conjunctiva is not injected. No hemorrhage. Left eye: Left conjunctiva is not injected. No hemorrhage. Pupils: Pupils are equal, round, and reactive to light. Cardiovascular: Rate and Rhythm: Normal rate and regular rhythm. Heart sounds: Normal heart sounds. Pulmonary: Effort: Pulmonary effort is normal. No tachypnea, accessory muscle usage or respiratory distress. Breath sounds: Normal breath sounds. No stridor. No wheezing or rales. Abdominal: Palpations: Abdomen is soft. Tenderness: There is no abdominal tenderness. There is no guarding or rebound. Musculoskeletal: Cervical back: Normal range of motion and neck supple. No rigidity or tenderness. Comments: Erythematous base ma (more content not included)... Normal [facility] CNPNon 12-30-2022 [facility] Telephone (UCWSTR) ----- LENARD CONTRERAS ([id number]) 5 F Date Time Provider Department 12/30/22 OCHOA PATEL [facility] During your visit today, we recorded the following information about you: Shanna Molina 12/30/2022 12:13 PM Signed Mom, calling to ask for excuse for work for pt. She needs for the rest of the week. Mom would like to bean picker machine operator this afternoon. Brooklyn Guzman LPN 12/30/2022 2:16 PM Signed Patient's mother notified.Brooklyn Guzman LPN Allergies As of Date: 12/30/2022 Noted Allergy Reaction CATS 04/12/2012 3 - Cough DUST 04/12/2012 3 - Cough SEASONAL ALLERGIES 04/12/2012 3 - Cough Date Reviewed: 12/30/2022 Reviewed by: Ochoa Patel APRN.BOX BLANK MACHINE OPERATOR HELPER - Fully Assessed Reason for Visit: Patient Question [4417] Prescriptions as of 12/30/2022 - amoxicillin (AMOXIL) 500 mg capsule Take 500 mg by mouth once daily. - Adapalene 0.3 % gel Apply to affected area once daily. - mv,Ca,min/iron/FA/guarana /caff (ONE-A-DAY WOMEN'S ACTIVE ORAL) Take by mouth. - cholecalciferol, vitamin D3, (VITAMIN D3 ORAL) Take by mouth. - ascorbic acid (CLARK-C ORAL) Take by mouth. - lactobacillus rhamnosus (CULTURELLE) 10 billion cell capsule Take 1 capsule by mouth once daily. - Azelaic Acid 15 % gel - iron bis-gly/FA/C/B12/Ca/succ (IRON 21/7 ORAL) Take 1 Dose Pack by mouth once daily. - albuterol HFA (PROVENTIL HFA, VENTOLIN HFA) 90 mcg/actuation inhaler Inhale 2 Puffs as instructed every 4 hours as needed for wheezing/shortness of breath. - fluticasone (FLONASE) 50 mcg/actuation nasal spray Use 1 [place] in each nostril daily at bedtime. - loratadine (CLARITIN) 10 mg tablet Take 10 mg by mouth once daily. Using as needed Problem List As Of Date 12/30/2022 Noted Resolved Mild intermittent asthma without complication [*05/16/2015 03/03/2019 Flat feet [M21.41, M21.42] 03/01/2018 Encounter Status:Closed by BROOKLYN GUZMAN LPN on 12/30/22 [facility] CNOVon 12-29-2022 CNOV Office Visit (ORMDNA ) ----- LENARD CONTRERAS ([id number]) 5 F Date Time Provider Department 12/29/22 9:20 AM JUANY KWON During your visit today, we recorded the following information about you: Juany Kwon PA-C 12/31/2022 7:36 AM Signed Juany Kwon PA-C [facility] [place] [address] , December 29, 2022 Injury Date - 08/14/2022 Accompanied by: Mom Subjective: Lenard Contreras is here for evaluation of left ankle injury. Forms ago, she was jumping up and down when she came down and sustained an inversion injury. She initially was seen by her automotive dismantler. X-rays were within normal limits. She was encouraged to use an air cast, but Lenard admits that she was on the complaint for couple of days. She started wearing an OTC brace which has provided some support. 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 Denies any numbness, tingling, or instability. Pain is around the entire ankle. Objective: Left ankle: Patient imaged with nonantalgic gait. She has a soft figure 8 brace on today. No TTP over the medial or lateral malleoli Or the base of fifth metatarsal. Mild pain over the ATFL and tib-fib joint. She has full range of motion in all planes. Strength is maintained but mild painful with abduction and adduction. No AP instability. Neurovascularly intact. Imaging: X-rays obtained 07-26-2022 of the left ankle show no acute bony abnormalities Impression: Left ankle sprain Plan: New lace up ankle brace PT Modified light activities Follow up in person or virtually if pain does not improve; will likely need new XR prior to MRI Juany Kwon PA-C Referring Provider: CAROLYN WALTERS [[id number]] Allergies As of Date: 12/29/2022 Noted Allergy Reaction CATS 04/12/2012 3 - Cough DUST 04/12/2012 3 - Cough SEASONAL ALLERGIES 04/12/2012 3 - Cough Date Reviewed: 12/29/2022 Reviewed by: Juany Kwon PA-C - Fully Assessed Reason for Visit: New [007822] Pain [78] Visit Diagnosis:Sprain of anterior talofibular ligament of left ankle, subsequent encounter [S93.492D] Order(s):CONSULT TO ORTHO/PEDIATRICS [060767] Order #: [id number]: 1 CONSULT TO PHYSICAL THERAPY [9032] Order #: [id number]: 1 FUTURE Prescriptions as of 12/31/2022 - amoxicillin (AMOXIL) 500 mg capsule Take 500 mg by mouth once daily. - Adapalene 0.3 % gel Apply to affected area once daily. - mv,Ca,min/iron/FA/guarana /caff (ONE-A-DAY WOMEN'S ACTIVE ORAL) Take by mouth. - cholecalciferol, vitamin D3, (VITAMIN D3 ORAL) Take by mouth. - ascorbic acid (CLARK-C ORAL) Take by mouth. - lactobacillus rhamnosus (CULTURELLE) 10 billion cell capsule Take 1 capsule by mouth once daily. - Azelaic Acid 15 % gel - iron bis-gly/FA/C/B12/Ca/succ (IRON 21/7 ORAL) Take 1 Dose Pack by mouth once daily. - albuterol HFA (PROVENTIL HFA, VENTOLIN HFA) 90 mcg/actuation inhaler Inhale 2 Puffs as instructed every 4 hours as needed for wheezing/shortness of breath. - fluticasone (FLONASE) 50 mcg/actuation nasal spray Use 1 Hampton in each nostril daily at bedtime. - loratadine (CLARITIN) 10 mg tablet Take 10 mg by mouth once daily. Using as needed Problem List As Of Date 12/29/2022 Noted Resolved Mild intermittent asthma without complication [*05/16/2015 03/03/2019 Flat feet [M21.41, M21.42] 03/01/2018 Letter Text Encounter Status:Closed by JUANY KWON on 12/31/22 [facility] CNOVaudrey 12-19-2022 CNOV Office Visit (PEDSWS ) ----- LENARD CONTRERAS ([id number]) 5 F Date Time Provider Department 12/19/22 11:45 AM CAROLYN WALTERS PEDSWS During your visit today, we recorded the following information about you: Temperature Pulse Respiration Blood pressure 99.2 degrees 80/minute 16/minute 106/76 Weight Last Period 71.3 kg 11/30/22 Carolyn Walters APRN.BOX BLANK MACHINE OPERATOR HELPER 12/19/2022 11:53 AM Signed PEDIATRIC ELIZONDO/ANKLE/FOOT INJURY VISIT Lenard Contreras is a 17 year old female presenting with injury to her left ankle(s). Sprain to left ankle 4 months ago, has been having pain with walking, or it is held in certain positions since the sprain. Has been wearing shoes with support only and pain is worsening. Seen in office by Dr. Mason on 08/15/22. Xray was normal. Advised to wear walking boot or aircast with crutches. She used crutches with an aircast for 1 day only. After that, wore a brace she had, but infrequently. 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, nearly crying in pain Cannot stand on left tip toes No known reinjury Has tried ice and ibuprofen History was obtained from: patient HPI: Date of the injury or when pain began: 4 months ago History of the injury: pain on and off, but more consistent recently Able to ambulate: Yes Bruising: No Swelling: No Numbness/Tingling: No Radiation of the pain: Yes, into heel Pain Scale: reports 4-5/10 in clinic now, reports 8/10 after working last night Pain is made worse by: running and walking, standing Pain is relieved by: rest Treatment attempted: Ibuprofen and ice Night pain: No Pain since injury: intermittently better, worse now Prior injuries to this area: None ROS: Redness/swelling of other joints: No New or atypical rashes: No Physical exam: BP 106/76 Pulse 80 Temp 37.3 ?C (99.2 ?F) (Temporal Artery) Resp 16 Wt 71.3 kg (157 lb 3.2 oz) LMP 11/30/2022 General: Well developed, No acute distress Musculoskeletal: Ankle: no swelling or bruising, and mildly tender upon palpation over medial malleolus, lateral malleolus and peroneal tendon, full ROM, full flexion and extension Gait: normal gait Neuro: Sensation intact to light touch and intact to pain Skin: Normal color, texture and turgor. No rashes. Assessment/Plan: Encounter Diagnosis ICD-10-CM 1. Sprain of left ankle, unspecified ligament, subsequent encounter S93.402D CONSULT TO ORTHO/PEDIATRICS - Recommend further evaluation with orthopedics d/t persistent symptoms - Continue wearing brace, rest, ibuprofen - Return to clinic for persistent or worsening symptoms, or other concerns. Carolyn Walters APRN.RENO Walters APRN.RENO 12/19/2022 11:07 AM Signed 5 to Go!TM Healthy Kids Inside AND Out 5 Eat FIVE fruits and veggies a day 4 Give and get FOUR compliments a day 3 Consume THREE calcium products a day 2 Limit media time to TWO hours a day 1 Get at least ONE hour of exercise a day 0 Consume ZERO sugar-sweetened drinks Go! Be healthy, inside and out! [email or web address] toGo Allergies As of Date: 12/19/2022 Noted Allergy Reaction CATS 04/12/2012 3 - Cough DUST 04/12/2012 3 - Cough SEASONAL ALLERGIES 04/12/2012 3 - Cough Date Reviewed: 12/19/2022 Reviewed by: Carolyn Walters APRN.CNP - Fully Assessed Reason for Visit: Left ankle pain [Other] Cmt: Sprain to left ankle 4 months ago, has been having pain with walking, or it is held in certain positions since the sprain. Has been wearing shoes with support only and pain is worsening. Primary Visit Diagnosis:Sprain of left ankle, unspecified ligament, subsequent encounter [S93.402D] Order(s):CONSULT TO ORTHO/PEDIATRICS [[id number]] Order #: [id number]: 1 FUTURE Prescriptions as of 12/19/2022 - amoxicillin (AMOXIL) 500 mg capsule Take 500 mg by mouth once daily. - Adapalene 0.3 % gel Apply to affected area once daily. - mv,Ca,min/iron/FA/guarana /caff (ONE-A-DAY WOMEN'S ACTIVE ORAL) Take by mouth. - cholecalciferol, vitamin D3, (VITAMIN D3 ORAL) Take by mouth. - ascorbic acid (CLARK-C ORAL) Take by mouth. - lactobacillus rhamnosus (CULTURELLE) 10 billion cell capsule Take 1 capsule by mouth once daily. - Azelaic Acid 15 % gel - iron bis-gly/FA/C/B12/Ca/succ (IRON 21/7 ORAL) Take 1 Dose Pack by mouth once daily. - albuterol HFA (PROVENTIL HFA, VENTOLIN HFA) 90 mcg/actuation inhaler Inhale 2 Puffs as instructed every 4 hours as needed for wheezing/shortness of breath. - fluticasone (FLONASE) 50 mcg/actuation nasal spray Use 1 Hampton in each nostril daily at bedtime. - loratadine (CLARITIN) 10 mg tablet Take 10 mg by mouth once daily. Using as needed Problem List As Of (more content not included)... Normal [facility] CNOVon 08-15-2022 CNOV Office Visit (PEDSWS ) ----- LENARD CONTRERAS ([id number]) 5 F Date Time Provider Department 08/15/22 9:00 AM JUNITO MASON PEDSEBASTIÁNS During your visit today, we recorded the following information about you: Last Period 08/11/22 Junito Mason MD 08/15/2022 1:58 PM Signed PEDIATRIC ELIZONDO/ANKLE/FOOT INJURY VISIT SERVICE DATE: 08/15/2022 Lenard Contreras is a 17 year old female accompanied by father presenting with injury to her left ankle(s). HPI: Date of the injury or when pain began: last night History of the injury: Was jumping in a [place] and then landed on on inverted foot Able to ambulate: No- was able to just after injury but not now Bruising: Yes Swelling: Yes Numbness/Tingling: Yes Radiation of the pain: No Pain is made worse by: touching skin or weight bearing Pain is relieved by: rest Treatment attempted: ice Night pain: Yes Pain since injury: worse Prior injuries to this area: None Past Medical History: Prior stress fracture: No Prior ankle sprains: No Family History: Rheumatologic issue: No Arthritis: No Stress fracture: No FAMILY HISTORY Problem Relation Age of Onset Allergies Mother None Father Diabetes Father Cousin-juvenile diabetes Cancer Father Great aunt-Small cell lumg ROS: Redness/swelling of other joints: No New or atypical rashes: No Physical exam: BP (P) 102/66 Pulse (P) 68 Temp (P) 37 ?C (98.6 ?F) (Temporal) Resp (P) 16 Wt (P) 69.3 kg (152 lb 12.8 oz) LMP 08/11/2022 General: Well developed, No acute distress Musculoskeletal: Elizondo: bruising noted on the left medial mid elizondo Ankle: swelling, tender upon palpation over medial malleolus, lateral malleolus, and ATFL, and unable to bear weight Foot: symmetric Gait: Using crutches and unable to bear weight on the left Neuro: Sensation intact to light touch and intact to pain; ankle jerk reflex + Skin: Normal color, texture and turgor. No rashes. Xrays: Left ankle Assessment/Plan: Encounter Diagnosis ICD-10-CM 1. Sprain of left ankle, unspecified ligament, initial encounter S93.402A XR ANKLE GENERAL 3V AP/LAT/OBL LEFT - Ice-15 minutes three times per day - Cbzzx-zrksmaj-lmh was able to stand and bear some weight but not walk on the left ankle. - Ibuprofen as needed -I discussed using an Aircast and crutches versus a walking boot. She would much prefer to use an Aircast however if she does not show improvement over the next couple days I would prefer a walking boot rather to ongoing use of crutches. SIGNATURE: Junito Mason MD PATIENT NAME: Lenard Contreras DATE: August 15, 2022 TIME: 9:23 AM Junito Mason MD 08/15/2022 9:23 AM Signed 5 to Go!TM Healthy Kids Inside AND Out 5 Eat FIVE fruits and veggies a day 4 Give and get FOUR compliments a day 3 Consume THREE calcium products a day 2 Limit media time to TWO hours a day 1 Get at least ONE hour of exercise a day 0 Consume ZERO sugar-sweetened drinks Go! Be healthy, inside and out! [email or web address] toGo Allergies As of Date: 08/15/2022 Noted Allergy Reaction CATS 04/12/2012 3 - Cough DUST 04/12/2012 3 - Cough SEASONAL ALLERGIES 04/12/2012 3 - Cough Date Reviewed: 08/15/2022 Reviewed by: Jackie Buck RN - Fully Assessed Reason for Visit: left ankle injury [Other] Cmt: hopping and fell on it last evening, swollen, painful, bruising above ankle lower leg, toes are numb. Primary Visit Diagnosis:Sprain of left ankle, unspecified ligament, initial encounter [S93.402A] Order(s):XR ANKLE GENERAL 3V AP/LAT/OBL LEFT [[id number]] Order #: [id number] FUTURE XR ANKLE GENERAL 3V AP/LAT/OBL LEFT [[id number]] Order #: [id number]. #:[id number] Prescriptions as of 08/15/2022 - mv,Ca,min/iron/FA/guarana /caff (ONE-A-DAY WOMEN'S ACTIVE ORAL) Take by mouth. - cholecalciferol, vitamin D3, (VITAMIN D3 ORAL) Take by mouth. - ascorbic acid (CLARK-C ORAL) Take by mouth. - lactobacillus rhamnosus (CULTURELLE) 10 billion cell capsule Take 1 capsule by mouth once daily. - Azelaic Acid 15 % gel - iron bis-gly/FA/C/B12/Ca/succ (IRON 21/7 ORAL) Take 1 Dose Pack by mouth once daily. - albuterol HFA (PROVENTIL HFA, VENTOLIN HFA) 90 mcg/actuation inhaler Inhale 2 Puffs as instructed every 4 hours as needed for wheezing/shortness of breath. - fluticasone (FLONASE) 50 mcg/actuation nasal spray Use 1 Hampton in each nostril daily at bedtime. - loratadine (CLARITIN) 10 mg tablet Take 10 mg by mouth once daily. Using as needed Problem List As Of Date 08/15/2022 Noted Resolved Mild intermittent asthma without complication [*05/16/2015 03/03/2019 Flat feet [M21.41, M21.42] 03/01/2018 Other instructions from your clinician: 5 to Go!TM Healthy Kids Inside AND Out 5 Eat FIVE fruits and veggies a day 4 Give and get FOUR compliments a day 3 Consume THREE calc (more content not included)... Normal [facility] XR ANKLE 3V AP/LAT/OBL LTon 08-15-2022 XR ANKLE 3V AP/LAT/OBL LT * * *Final Report* * * DATE OF EXAM: Aug 15 2022 9:47AM WOX 5298 - XR ANKLE 3V AP/LAT/OBL LT / PROCEDURE REASON: Sprain of left ankle, unspecified ligament, initial encounter * * * * Physician Interpretation * * * * EXAMINATION / TECHNIQUE: XR ANKLE 3V AP/LAT/OBL LT PATIENT/TECHNOLOGIST PROVIDED HISTORY: PT STS IN FOR LT ANKLE PAIN. HURT IT YESTERDAY WHILE JUMPING. NO PRV SX TO LT ANKLE CLINICAL INFORMATION ( PROVIDED BY ORDERING CLINICIAN) : Sprain of left ankle, unspecified ligament, initial encounter; pain COMPARISON: Radiograph 04/26/2018 RESULT: No acute fracture or dislocation. Ankle mortise is maintained. Normal contour of the talar dome. Soft tissue swelling. Ankle joint effusion. IMPRESSION: No acute osseous abnormality. Policy Change Clerk: [employer] Transcribe Date/Time: Aug 15 2022 9:48A Dictated by : SUSSY SNYDER MD This examination was interpreted and the report reviewed and electronically signed by: MICHAEL KENYON MD on Aug 15 2022 10:04AM EST [id number] Normal [facility] XR ANKLE GENERAL 3V AP/LAT/O BL LEFTon 08-15-2022 [facility] XR Ankle - left AP and Later al and obliqueon 08-15-2022 IMPRESSION: No acute osseous abnormality. Policy Change Clerk: [email or web address] Transcribe Date/Time: Aug 15 2022 9:48A Dictated by : SUSSY SNYDER MD This examination was interpreted and the report reviewed and electronically signed by: MICHAEL KENYON MD on Aug 15 2022 10:04AM EST DIVISION OF RADIOLOGY * * *Final Report* * * DATE OF EXAM: Aug 15 2022 9:47AM WOX 5298 - XR ANKLE 3V AP/LAT/OBL LT / PROCEDURE REASON: Sprain of left ankle, unspecified ligament, initial encounter * * * * Physician Interpretation * * * * EXAMINATION / TECHNIQUE: XR ANKLE 3V AP/LAT/OBL LT PATIENT/TECHNOLOGIST PROVIDED HISTORY: PT STS IN FOR LT ANKLE PAIN. HURT IT YESTERDAY WHILE JUMPING. NO PRV SX TO LT ANKLE CLINICAL INFORMATION ( PROVIDED BY ORDERING CLINICIAN) : Sprain of left ankle, unspecified ligament, initial encounter; pain COMPARISON: Radiograph 04/26/2018 RESULT: No acute fracture or dislocation. Ankle mortise is maintained. Normal contour of the talar dome. Soft tissue swelling. Ankle joint effusion. DIVISION OF RADIOLOGY Provider, [facility] - 08/15/2022 * * *Final Report* * * DATE OF EXAM: Aug 15 2022 9:47AM WOX 5298 - XR ANKLE 3V AP/LAT/OBL LT / PROCEDURE REASON: Sprain of left ankle, unspecified ligament, initial encounter * * * * Physician Interpretation * * * * EXAMINATION / TECHNIQUE: XR ANKLE 3V AP/LAT/OBL LT PATIENT/TECHNOLOGIST PROVIDED HISTORY: PT STS IN FOR LT ANKLE PAIN. HURT IT YESTERDAY WHILE JUMPING. NO PRV SX TO LT ANKLE CLINICAL INFORMATION ( PROVIDED BY ORDERING CLINICIAN) : Sprain of left ankle, unspecified ligament, initial encounter; pain COMPARISON: Radiograph 04/26/2018 RESULT: No acute fracture or dislocation. Ankle mortise is maintained. Normal contour of the talar dome. Soft tissue swelling. Ankle joint effusion. IMPRESSION IMPRESSION: No acute osseous abnormality. Policy Change Clerk: [employer] Transcribe Date/Time: Aug 15 2022 9:48A Dictated by : SUSSY SNYDER MD This examination was interpreted and the report reviewed and electronically signed by: MICHAEL KENYON MD on Aug 15 2022 10:04AM EST [facility] Radiology Study observation (narrative) [facility] XR Ankle - left AP and Later al and obliqueOrdered By: Cc Provider on 08-15-2022 [facility] CBC panel Auto (Bld)on 05-12 Erythrocyte distribution width (RBC) [Ratio] 12.6 % 11.5 - 15.0 % [facility] Hematocrit (Bld) [Volume fraction] 41.9 % 36.0 - 46.0 % [facility] Hemoglobin (Bld) [Mass/Vol] 14.0 g/dL 11.5 - 15.5 g/dL [facility] MCH (RBC) [Entitic mass] 30.4 pg 26. 0 - 34.0 pg [facility] MCHC (RBC) [Mass/Vol] 33.4 g/dL 30.5 - 36.0 g/dL [facility] MCV (RBC) [Entitic vol] 91.1 fL 80.0 - 100.0 fL [facility] Nucleated RBC (Bld) [#/Vol] <0.01 k/uL [facility] Platelet mean volume (Bld) [Entitic vol] 10.0 fL 9.0 - 12.7 fL [facility] Platelets (Bld) [#/Vol] 270 10*3/uL 150 - 400 k/uL [facility] RBC (Bld) [#/Vol] 4.60 10*6/uL 3.90 - 5.20 m/uL [facility] WBC (Bld) [#/Vol] 7.93 10*3/uL 3.70 - 11.00 k/uL [facility] ECG COMPLETEon 05-12-2022 Atrial Rate 64 BPM [facility] Calculated P [place] -15 degrees [facility] Calculated R [place] 70 degrees [facility] Cal[facility] T [place] 37 degrees [facility] P-R Interval 136 ms [facility] QRS Duration 82 ms [facility] QT Interval 402 ms [facility] QTC Calculation (Bazett) 414 ms [facility] Ventricular Rate [address] [facility] Vital Signs Date Time Vital Sign Value Performing Clinician Facility 08-08-2024 14:08-0500 Body height 165.1 cm Beatrice Oliavres MD Work Phone: [facility] 08-08-2024 14:08-0500 Body mass index (BMI) [Ratio] 27.12 kg/m2 Beatrice Olivares MD Work Phone: [facility] 08-08-2024 14:08-0500 Body temperature 97.7 [degF] Beatrice Olivares MD Work Phone: [facility] 08-08-2024 14:08-0500 Body weight 73.94 kg Beatrice Olivares MD Work Phone: [facility] 08-08-2024 14:08-0500 Diastolic blood pressure 74 mm[Hg] Beatrice Olivares MD Work Phone: [facility] 08-08-2024 14:08-0500 Heart rate 83 /min Beatrice Olivares MD Work Phone: [facility] 08-08-2024 14:08-0500 Respiratory rate 19 /min Beatrice Olivares MD Work Phone: [facility] 08-08-2024 14:08-0500 SaO2% (BldA) [Mass fraction] 97 % Beatrice Olivares MD Work Phone: [facility] 08-08-2024 14:08-0500 Systolic blood pressure 112 mm[Hg] Beatrice Olivares MD Work Phone: [facility] 07-21-2023 11:24-0500 Body height 167.3 cm Danna Hand MD Work Phone: [facility] 07-21-2023 11:24-0500 Body mass index (BMI) [Percentile] Per age and sex 87.38 % Danna Hand MD Work Phone: [facility] 07-21-2023 11:24-0500 Body mass index (BMI) [Ratio] 26.3 kg/m2 Danna Hand MD Work Phone: [facility] 07-21-2023 11:24-0500 Body weight 73.6 kg Danna Hand MD Work Phone: [facility] 07-06-2023 14:05-0500 Body temperature 97.3 [degF] Danna Hand MD Work Phone: [facility] 07-06-2023 14:05-0500 Diastolic blood pressure 62 mm[Hg] Danna Hand MD Work Phone: [phone] [place] [address] 07-06-2023 14:05-0500 Heart rate 81 /min Dannaalida Hand MD Work Phone: [facility] 07-06-2023 14:05-0500 Respiratory rate 18 /min Danna Hand MD Work Phone: [facility] 07-06-2023 14:05-0500 SaO2% (BldA) [Mass fraction] 100 % Dannaalida Hand MD Work Phone: [facility] 07-06-2023 14:05-0500 Systolic blood pressure 111 mm[Hg] Dannaalida Hand MD Work Phone: [facility] 07-06-2023 13:40-0500 Body height 167.2 cm Danna Hand MD Work Phone: [facility] 07-06-2023 13:40-0500 Body mass index (BMI) [Percentile] Per age and sex 85.64 % Danna Hand MD Work Phone: [facility] 07-06-2023 13:40-0500 Body mass index (BMI) [Ratio] 25.79 kg/m2 Danna Hand MD Work Phone: [facility] 07-06-2023 13:40-0500 Body weight 72.1 kg Danna Hand MD Work Phone: [facility] 04-21-2023 10:22-0400 Body height 167.9 cm Danna Hand MD Work Phone: [facility] 04-21-2023 10:22-0400 Body mass index (BMI) [Percentile] Per age and sex 83.54 % Danna Hand MD Work Phone: [facility] 04-21-2023 10:22-0400 Body mass index (BMI) [Ratio] 25.19 kg/m2 Danna Hand MD Work Phone: [facility] 04-21-2023 10:22-0400 Body weight 71 kg Danna Hand MD Work Phone: [facility] 03-17-2023 10:55-0400 Body height 166.8 cm Junito P Marlon Work Phone: [facility] Work Phone: 03-17-2023 10:55-0400 Body mass index (BMI) [Ratio] 26.17 kg/m2 Junito P Marlon Work Phone: [facility] Work Phone: 03-17-2023 10:55-0400 Body surface area Derived from formula 1.81 m2 Junito P Marlon Work Phone: [facility] Work Phone: 03-17-2023 10:55-0400 Body temperature 98.1 [degF] Junito De Paz Marlon Work Phone: [facility]lzuqsnf[facility] Work Phone: 03-17-2023 10:55-0400 Body weight 72.8 kg Junito P Marlon Work Phone: RM[facility]ul[facility]ufa[facility] Work Phone: 03-17-2023 10:55-0400 Heart rate 100 /min Junito De Paz Marlon Work Phone: DN[facility]ots[facility]pi[facility] Work Phone: 03-17-2023 10:55-0400 SaO2% (BldA) [Mass fraction] 98 % Junito P Marlon Work Phone: IR[facility]vheezlv[facility] Work Phone: 03-17-2023 10:55-0400 71 1 Junito P Marlon Work Phone: SU[facility]Beyrlmfwox[facility]g [facility] Work Phone: Comment on above: 2-20_SPe 03-17-2023 10:55-0400 90 1 Junito P Marlon Work Phone: RB[facility]Ukolqvzzyt[facility] Work Phone: Comment on above: 2-20_WPerc 03-17-2023 10:55-0400 87 1 Junito Mason Work Phone: DO-[facility]tixlukgdq[facility] Work Phone: Comment on above: [facility] 01-13-2023 11:06-0400 Body height 165.9 cm Shameka Saucedo MD Work Phone: [facility] 01-13-2023 11:06-0400 Body mass index (BMI) [Percentile] Per age and sex 83.6 % Shameka Saucedo MD Work Phone: [facility] 01-13-2023 11:06-0400 Body temperature 98.01 [degF] Shameka Saucedo MD Work Phone: [facility] 01-13-2023 11:06-0400 Body weight 69.04 kg Shameka Saucedo MD Work Phone: [facility] 01-13-2023 11:06-0400 Diastolic blood pressure 76 mm[Hg] Shameka Saucedo MD Work Phone: [facility] 01-13-2023 11:06-0400 Heart rate 72 /min Shameka Saucedo MD Work Phone: [facility] 01-13-2023 11:06-0400 Respiratory rate 16 /min Shameka Saucedo MD Work Phone: [facility] 01-13-2023 11:06-0400 Systolic blood pressure 120 mm[Hg] Shameka Saucedo MD Work Phone: [facility] 01-02-2023 15:21-0400 Body temperature 98.29 [degF] Junito Mason MD Work Phone: [facility] 01-02-2023 15:21-0400 Body weight 69.85 kg Junito Mason MD Work Phone: [facility] 01-02-2023 15:21-0400 Heart rate 80 /min Junito Mason MD Work Phone: [facility] 01-02-2023 15:21-0400 Respiratory rate 18 /min Junito Mason MD Work Phone: [facility] 12-30-2022 09:34-0400 Body temperature 98.01 [degF] Ochoa Jorge DESIGN QUALITY ENGINEER.BOX BLANK MACHINE OPERATOR HELPER Work Phone: [facility] 12-30-2022 09:34-0400 Body weight 70.13 kg Ochoa Patel DESIGN QUALITY ENGINEER.BOX BLANK MACHINE OPERATOR HELPER Work Phone: [facility] 12-30-2022 09:34-0400 Diastolic blood pressure 72 mm[Hg] Ochoa Jennylesharon DESIGN QUALITY ENGINEER.BOX BLANK MACHINE OPERATOR HELPER Work Phone: [facility] 12-30-2022 09:34-0400 Heart rate 81 /min Ochoa Patel DESIGN QUALITY ENGINEER.BOX BLANK MACHINE OPERATOR HELPER Work Phone: [facility] 12-30-2022 09:34-0400 Respiratory rate 18 /min Ochoa Patel DESIGN QUALITY ENGINEER.BOX BLANK MACHINE OPERATOR HELPER Work Phone: [facility] 12-30-2022 09:34-0400 SaO2% (BldA) [Mass fraction] 97 % Ochoa Patel DESIGN QUALITY ENGINEER.BOX BLANK MACHINE OPERATOR HELPER Work Phone: [facility] 12-30-2022 09:34-0400 Systolic blood pressure 122 mm[Hg] Ochoa Patel DESIGN QUALITY ENGINEER.BOX BLANK MACHINE OPERATOR HELPER Work Phone: [facility] 12-19-2022 10:58-0400 Body temperature 99.19 [degF] Carolyn Walters DESIGN QUALITY ENGINEER.BOX BLANK MACHINE OPERATOR HELPER Work Phone: [facility] 12-19-2022 10:58-0400 Body weight 71.31 kg Carolyn Walters DESIGN QUALITY ENGINEER.BOX BLANK MACHINE OPERATOR HELPER Work Phone: [facility] 12-19-2022 10:58-0400 Diastolic blood pressure 76 mm[Hg] Carolyn Walters DESIGN QUALITY ENGINEER.BOX BLANK MACHINE OPERATOR HELPER Work Phone: [facility] 12-19-2022 10:58-0400 Heart rate 80 /min Carolyn Walters DESIGN QUALITY ENGINEER.BOX BLANK MACHINE OPERATOR HELPER Work Phone: [facility] 12-19-2022 10:58-0400 Respiratory rate 16 /min Carolyn Walters DESIGN QUALITY ENGINEER.BOX BLANK MACHINE OPERATOR HELPER Work Phone: [facility] 12-19-2022 10:58-0400 Systolic blood pressure 106 mm[Hg] Carolyn Walters DESIGN QUALITY ENGINEER.BOX BLANK MACHINE OPERATOR HELPER Work Phone: [facility] 06-03-2022 12:58-0500 Body height 166 cm Shameka Saucedo MD Work Phone: [facility] 06-03-2022 12:58-0500 Body mass index (BMI) [Percentile] Per age and sex 85.21 % Shameka Saucedo MD Work Phone: [facility] 06-03-2022 12:58-0500 Body temperature 97.81 [degF] Shameka Saucedo MD Work Phone: [facility] 06-03-2022 12:58-0500 Body weight 69.31 kg Shameka Saucedo MD Work Phone: [facility] 06-03-2022 12:58-0500 Heart rate 80 /min Shameka Saucedo MD Work Phone: [facility] 06-03-2022 12:58-0500 Respiratory rate 20 /min Shameka Saucedo MD Work Phone: [facility] 05-12-2022 12:21-0400 Body height 166.5 cm Shameka Saucedo MD Work Phone: [facility] 05-12-2022 12:21-0400 Body mass index (BMI) [Percentile] Per age and sex 84.28 % Shameka Saucedo MD Work Phone: [facility] 05-12-2022 12:21-0400 Body temperature 98.91 [degF] Shameka Saucedo MD Work Phone: [facility] 05-12-2022 12:21-0400 Body weight 69.04 kg Shameka Saucedo MD Work Phone: [facility] 05-12-2022 12:21-0400 Diastolic blood pressure 64 mm[Hg] Shameka Saucedo MD Work Phone: [facility] 05-12-2022 12:21-0400 Heart rate 80 /min Shameka Saucedo MD Work Phone: [facility] 05-12-2022 12:21-0400 Respiratory rate 16 /min Shameka Saucedo MD Work Phone: [facility] 05-12-2022 12:21-0400 Systolic blood pressure 102 mm[Hg] Shameka Saucedo MD Work Phone: [facility] 10-10-2021 08:53-0400 Body temperature 97.2 [degF] Junito Mason MD Work Phone: [facility] 10-10-2021 08:53-0400 Body weight 74.05 kg Junito Mason MD Work Phone: [facility] 10-10-2021 08:53-0400 Respiratory rate 16 /min Junito Mason MD Work Phone: [facility] Encounters Encounter Date Encounter Type Care Provider Facility Start: 12-06-2024 End: 12-06-2024 ambulatory Tu Holly MD Work Phone: [facility] Work Phone: Start: 12-06-2024 End: 12-06-[address] Tu Holly MD -Radiology [place] Work Phone: Start: 12-06-2024 End: 12-06-2024 ambulatory Tu Holly Facility:[facility] Start: 08-08-2024 End: 08-08-2024 Office outpatient new 20 minutes Beatrice Olivares MD Work Phone: [facility] [place] Comment on above: Partial thickness bu rn of left lower extremity, initial encounter (Primary Dx) Start: 07-08-2024 End: 07-08-2024 ambulatory Tu Holly Facility:[facility] Start: 11-04-2023 End: 11-04-2023 ambulatory [facility] Ambulatory Start: 11-04-2023 End: 11-04-2023 Office outpatient visit 15 minutes Danna Hand MD Work Phone: [facility] Comment on above: Gastroesophageal ref lux disease without esophagitis (Primary Dx); Generalized abdominal pain Start: 08-05-2023 End: 08-05-2023 ambulatory [facility] Work Phone: Start: 08-05-2023 End: 08-05-2023 Discharged Recurring [facility] Work Phone: Start: 07-21-2023 End: 07-21-2023 ambulatory [facility] Ambulatory Start: 07-21-2023 End: 07-21-2023 Office outpatient visit 15 minutes Danna Hand MD Work Phone: [facility] Comment on above: Generalized abdomina l pain (Primary Dx); Gastroesophageal reflux disease without esophagitis Start: 07-06-2023 End: 07-07-2023 ambulatory [facility] Start: 07-06-2023 End: 07-06-2023 Subsequent hospital visit by physician Danna Hand MD Work Phone: [facility] Comment on above: Generalized abdomina l pain Start: 07-02-2023 End: 07-02-2023 ambulatory Juany Kwon PA-C Work Phone: Orthopaedics Comment on above: Sprain of anterior t alofibular ligament of left ankle, subsequent encounter (Primary Dx); Ankle weakness Start: 07-02-2023 End: 07-02-2023 Telemedicine consultation with patient Juany Kwon PA-C Work Phone: [facility] Start: 07-01-2023 End: 07-01-2023 ambulatory JUANY KWON Facility:[facility] Start: 07-01-2023 End: 07-01-2023 Subsequent hospital visit by physician Clare Otto (3t) Work Phone: Radiology Comment on above: Chronic pain of left ankle [M25.572, G89.29] Start: 06-16-2023 End: 06-16-2023 ambulatory JUANY KWON Facility:[facility] Start: 06-15-2023 End: 06-15-2023 ambulatory JUANY KWON Facility:[facility] Start: 06-12-2023 Orders Only Juany Kwno PA-C Work Phone: Orthopaedics Comment on above: Pain (Primary Dx) Start: 04-21-2023 End: 04-21-2023 ambulatory DANNA HAND [facility] Ambulatory Start: 04-21-2023 End: 04-21-2023 Office outpatient visit 15 minutes Danna Hand MD Work Phone: [facility] Comment on above: Generalized abdomina l pain (Primary Dx) Start: 03-19-2023 AUDIT Junito Mason Work Phone: KW[facility]Mabgfrrdaqtkodkq-C dmin Ted [facility] Work Phone: Start: 03-18-2023 Chart Update Junito Mason Work Phone: [facility] Work Phone: Start: 03-17-[address] Danna Bowens [facility] ility:[id number] Start: 03-12-2023 End: 03-12-2023 ambulatory [facility] Work Phone: Start: 03-12-2023 End: 03-12-2023 Discharged Recurring [facility] Work Phone: Start: 03-09-2023 Refill Junito Mason MD Work Phone: [facility] Comment on above: Refill Request Start: 01-13-2023 End: 01-13-2023 ambulatory SHAMEKA SAUCEDO Facility:[facility] Start: 01-13-2023 End: 01-13-2023 Patient encounter procedure Shameka Saucedo MD Work Phone: [facility] [place] Comment on above: Encounter for routin e child health examination without abnormal findings (Primary Dx) Start: 01-13-2023 End: 01-13-2023 Patient encounter status Shameka Saucedo MD Work Phone: [facility] Start: 01-12-2023 Telephone encounter Junito galindo MD Work Phone: [facility] Comment on above: Medication Problem Start: 01-02-2023 End: 01-03-2023 ambulatory JUNITO MASON Facility:[facility] Start: 01-02-2023 End: 01-02-2023 Office outpatient visit 25 minutes Junito Mason MD Work Phone: [facility] [place] Comment on above: Epigastric pain (Leandra madyson Dx) Start: 12-30-2022 End: 12-30-2022 ambulatory JUNITO MASON Facility:[facility] Start: 12-30-2022 End: 12-30-2022 Office outpatient visit 15 minutes Ochoa Patel APRN.BOX BLANK MACHINE OPERATOR HELPER Work Phone: [facility] Comment on above: Hand, foot, mouth di sease (Primary Dx) Start: 12-29-2022 End: 12-29-2022 ambulatory JUANY KWON Facility:[facility] Start: 12-19-2022 End: 12-20-2022 ambulatory JUNITO MASON Facility:[facility] Start: 12-19-2022 End: 12-19-2022 Patient encounter procedure Carolyn Walters APRN.BOX BLANK MACHINE OPERATOR HELPER Work Phone: [facility] Comment on above: Sprain of left ankle , unspecified ligament, subsequent encounter (Primary Dx) Start: 08-15-2022 End: 08-15-2022 ambulatory JUNITO MASON Facility:[facility] Start: 08-15-2022 End: 08-15-2022 Subsequent hospital visit by physician Saman [facility] Work Phone: Radiology Comment on above: Sprain of left ankle , unspecified ligament, initial encounter [S93.402A] Start: 08-15-2022 End: 08-15-2022 Office outpatient visit 15 minutes Junito Mason MD Work Phone: [facility] Comment on above: Sprain of left ankle , unspecified ligament, initial encounter (Primary Dx) Start: 06-03-2022 End: 06-03-2022 Patient encounter procedure Shameka Saucedo MD Work Phone: [facility] Comment on above: Chronic generalized abdominal pain (Primary Dx); Anxious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 Extremity Functional Score: 80 <Electronically signed by Paulette Dougherty DPT> 10/26/23 1056 CC: Dr. Junito Mason MD; JUANY KWON ~ ELR Signed [facility] Work Phone: 1(538) 428-562701-02-2024 History of Present illness Narrative* Danna Hand MD - 07/21/2023 11:30 AM EST Pediatric Gastroenterology Office Visit Subjective History of Present Illness: Lenard Contreras is a 17 y.o. female who was seen at [facility] Pediatric Gastroenterology, Hepatology & Nutrition Clinic as a follow up visit for abdominal pain. History obtained from mother and patient. History obtained from mother and patient. Lenard was last seen in April 2023. At that time her symptoms had not improved so she underwent upper endoscopy last month for further evaluation. EGD showed erythematous and granular mucosa in the duodenal bulb with possible early ulcer formation, and biopsies did not show any abnormalities including for H. Pylori. She was started on pantoprazole 40mg twice daily after the endoscopy. She states that her symptoms have improved since starting the medication. She has also identified foods that make her symptoms worse. Prior workup: - normal TTG IgA. CBC with slightly low white count but was sick at time of labs - EGD 07/06/23 - erythema and granular duodenal bulb with possible early ulcer formation Will be studying music therapy at [employer] [facility] in the fall. Review of Systems Review of Systems Constitutional: Negative for unexpected weight change. Gastrointestinal: Positive for abdominal pain. Negative for constipation and diarrhea. Allergies No Known Allergies Medications Current Outpatient Medications Medication Instructions adapalene (Differin) 0.3 % gel amoxicillin (Amoxil) 500 mg capsule oral ascorbic acid (VITAMIN C) 1,000 mg, oral, Daily dicyclomine (Bentyl) 10 mg capsule take 1 capsule by mouth three to four times a day if needed for abdominal pain lactobacillus (Culturelle) 10 billion cell capsule 1 capsule, oral, Daily loratadine (CLARITIN) 10 mg, oral, Daily multivitamin with minerals tablet 1 tablet, oral, Daily pantoprazole (PROTONIX) 40 mg, oral, 2 times daily, Do not crush, chew, or split. pyridoxine (VITAMIN B-6) 50 mg, oral, Daily spironolactone (Aldactone) 100 mg tablet spironolactone (ALDACTONE) 25 mg, oral, Daily Objective Wt Readings from Last 4 Encounters: 07/21/23 73.6 kg (91 %, Z= 1.33)* 07/06/23 72.1 kg (89 %, Z= 1.25)* 04/21/23 71 kg (89 %, Z= 1.20)* * Growth percentiles are based on CDC (Girls, 2-20 Years) data. Weight percentile: 91 %ile (Z= 1.33) based on CDC (Girls, 2-20 Years) [id number] data using vitals from 07/21/2023. Height percentile: 74 %ile (Z= 0.65) based on CDC (Girls, 2-20 Years) [id number] data based onStature recorded on 07/21/2023. BMI percentile: 87 %ile (Z= 1.14) based on CDC (Girls, 2-20 Years) BMI-for-age based on BMI available as of 07/21/2023. Physical Exam Vitals reviewed. Constitutional: General: She is awake. Pulmonary: Effort: Pulmonary effort is normal. Abdominal: General: Abdomen is flat. Palpations: Abdomen is soft. There is no mass. Tenderness: There is no abdominal tenderness. Neurological: Mental Status: She is alert. Assessment/Plan Lenard Contreras is a 17 y.o. female who was seen in the [facility] Pediatric Gastroenterology, Hepatology & Nutrition Clinic today for abdominal pain likely due to GERD (reflux). EGD with erythema and granularity and possible early ulcer formation. Her symptoms have improved with pantoprazole. Plan: Continue pantoprazole 40mg twice daily for 2 months then decrease to 40mg daily for 2 months Follow up in 3-4 months - okay to be virtual Danna Hand MD Attending Physician Pediatric Gastroenterology, Hepatology and Nutrition [facility]: 1([phone]) 971-616012-18-2023 Note* Perioperative Nursing Note - Nilda Keenan RN - 07/06/2023 2:14 PM EST Pt discharged home in stable condition via wheelchair and accompanied by mother to vehicle without issue [facility]12-18-2023 Note* Perioperative Nursing Note - Nilda Keenan RN - 07/06/2023 2:14 PM EST Pt discharged home in stable condition via wheelchair and accompanied by mother to vehicle without issue [facility]12-18-2023 Miscellaneous Notes* Perioperative Nursing Note - Nilda Keenan RN - 07/06/2023 2:14 PM EST Pt discharged home in stable condition via wheelchair and accompanied by mother to vehicle without issue * Perioperative Nursing Note - Nilda Keenan RN - 07/06/2023 1:55 PM EST Pt returned to pre- op status, VSS on RA, denies pain, PIV removed with catheter tip intact, tolerating PO w/o c/o n/v, states no further needs * Perioperative Nursing Note - Nilda Keenan RN - 07/06/2023 1:40 PM EST Pt in recovery, resting comfortably, VSS on Ra, no pain identified, PIV infusing WDL,family at bedside, will continue to monitor documented in this [facility] Work Phone: [phone]) 119-873812-18-2023 Miscellaneous Notes* Perioperative Nursing Note - Nilda Keenan RN - 07/06/2023 2:14 PM EST Pt discharged home in stable condition via wheelchair and accompanied by mother to vehicle without issue * Perioperative Nursing Note - Nidla Keenan RN - 07/06/2023 1:55 PM EST Pt returned to pre- op status, VSS on RA, denies pain, PIV removed with catheter tip intact, tolerating PO w/o c/o n/v, states no further needs * Perioperative Nursing Note - Nilda Keenan RN - 07/06/2023 1:40 PM EST Pt in recovery, resting comfortably, VSS on Ra, no pain identified, PIV infusing WDL,family at bedside, will continue to monitor [facility]: 1(282) 537-920912-18-2023 Note* Perioperative Nursing Note - Nilda Keenan RN - 07/06/2023 1:55 PM EST Pt returned to pre- op status, VSS on RA, denies pain, PIV removed with catheter tip intact, tolerating PO w/o c/o n/v, states no further needs [facility] Work Phone: 1([phone]) 722-706212-18-2023 Note* Perioperative Nursing Note - Nilda Keenan RN - 07/06/2023 1:55 PM EST Pt returned to pre- op status, VSS on RA, denies pain, PIV removed with catheter tip intact, tolerating PO w/o c/o n/v, states no further needs [facility] Work Phone: [phone]) 287-814912-18-2023 Note* Perioperative Nursing Note - Nilda Keenan RN - 07/06/2023 1:40 PM EST Pt in recovery, resting comfortably, VSS on Ra, no pain identified, PIV infusing WDL,family at bedside, will continue to monitor [facility] Work Phone: 1(350) 594-494112-18-2023 Note* Perioperative Nursing Note - Nilda Keenan RN - 07/06/2023 1:40 PM EST Pt in recovery, resting comfortably, VSS on Ra, no pain identified, PIV infusing WDL,family at bedside, will continue to monitor [facility] Work Phone: 1(155) 104-973412-18-2023 History and physical note* Danna Hand MD - 07/06/2023 1:30 PM EST History Of Present Illness Lenard Contreras is here today for EGD for evaluation of post-prandial abdominal pain. Past Medical History No past medical history on file. Surgical History No past surgical history on file. Allergies No Known Allergies ROS Review of Systems Gastrointestinal: Positive for abdominal pain. Negative for constipation and diarrhea. Physical Exam Physical Exam Vitals reviewed. Constitutional: General: She is awake. Pulmonary: Effort: Pulmonary effort is normal. Abdominal: General: Abdomen is flat. Palpations: Abdomen is soft. There is no mass. Tenderness: There is no abdominal tenderness. Neurological: Mental Status: She is alert. Assessment/Plan Lenard Contreras is here today for EGD for evaluation of abdominal pain. Danna Hand MD [facility] Work Phone: 1([phone]) 550-828612-18-2023 History and physical note* Danna Hand MD - 07/06/2023 1:30 PM EST History Of Present Illness Lenard Contreras is here today for EGD for evaluation of post-prandial abdominal pain. Past Medical History No past medical history on file. Surgical History No past surgical history on file. Allergies No Known Allergies ROS Review of Systems Gastrointestinal: Positive for abdominal pain. Negative for constipation and diarrhea. Physical Exam Physical Exam Vitals reviewed. Constitutional: General: She is awake. Pulmonary: Effort: Pulmonary effort is normal. Abdominal: General: Abdomen is flat. Palpations: Abdomen is soft. There is no mass. Tenderness: There is no abdominal tenderness. Neurological: Mental Status: She is alert. Assessment/Plan Lenard Contreras is here today for EGD for evaluation of abdominal pain. Danna Hand MD [facility] Work Phone: [phone]) 119-934612-18-2023 History and physical note* Danna Hand MD - 07/06/2023 1:30 PM EST History Of Present Illness Lenard Contreras is here today for EGD for evaluation of post-prandial abdominal pain. Past Medical History No past medical history on file. Surgical History No past surgical history on file. Allergies No Known Allergies ROS Review of Systems Gastrointestinal: Positive for abdominal pain. Negative for constipation and diarrhea. Physical Exam Physical Exam Vitals reviewed. Constitutional: General: She is awake. Pulmonary: Effort: Pulmonary effort is normal. Abdominal: General: Abdomen is flat. Palpations: Abdomen is soft. There is no mass. Tenderness: There is no abdominal tenderness. Neurological: Mental Status: She is alert. Assessment/Plan Lenard Contreras is here today for EGD for evaluation of abdominal pain. aDnna Hand MD documented in [facility] encounter[facility] Work Phone: 1([phone]) 771-595512-18-2023 History of Present illness Narrative* Janet Rivers, [facility] - 07/06/2023 1:30 PM EST Child Life Assessment: Reason for Consult Discipline: Doctor Of Medicine Reason for Consult: Preparation Preparation: Procedural (EGD & Colonoscopy) Referral Source: Self Anxiety Level Anxiety Level: Patient displays appropriate distress/anxiety Patient Intervention(s) Type of Intervention Performed: Healing environment interventions, Preparation interventions, Procedural support interventions Healing Environment Intervention(s): Orientation to services, Coping skill development/planning, Empathetic listening/validation of emotions Preparation Intervention(s): Medical/procedural preparation, Coping plan development/coordination/implemention Procedural Support Intervention(s): Coping plan implementation, Specific praise Support Provided to Family Support Provided to Family: Family present for patient session Family Present for Patient Session: Parent(s)/guardian(s) (Mom & Dad) Family Participation: Supportive Evaluation Patient Behaviors Pre-Interventions: Appropriate for age, Makes eye contact, Interactive Patient Behaviors Post-Interventions: Appropriate for age, Makes eye contact, Interactive, Cooperative Evaluation/Plan of Care: Patient/family receptive Procedural Care Plan: Session Details: Introduced self and role to patient and parents. Patient easily engaged in conversation and shared that this was her first scope. Provided developmentally appropriate preparation and discussed her preferred coping techniques. Patient shared feeling anxious about the IV and that she planned to look away and pray during the IV placement. Provided support and encouraged deep breathing during start to increase positive coping. Patient appeared to cope well with her plan listed above and numbing medication as she held still. Accompanied patient to procedure room for support when going to sleep.Patient was observed to be cooperative and engaging with staff. Emotional support provided to patient and parents throughout visit. No further needs as patient was discharged. HAKAN Rader Doctor Of Medicine documented in this [facility] Work Phone: [phone]) [phone] History of Present illness Narrative* HAKAN Rader - 07/06/2023 1:30 PM EST Child Life Assessment: Reason for Consult Discipline: Doctor Of Medicine Reason for Consult: Preparation Preparation: Procedural (EGD & Colonoscopy) Referral Source: Self Anxiety Level Anxiety Level: Patient displays appropriate distress/anxiety Patient Intervention(s) Type of Intervention Performed: Healing environment interventions, Preparation interventions, Procedural support interventions Healing Environment Intervention(s): Orientation to services, Coping skill development/planning, Empathetic listening/validation of emotions Preparation Intervention(s): Medical/procedural preparation, Coping plan development/coordination/implemention Procedural Support Intervention(s): Coping plan implementation, Specific praise Support Provided to Family Support Provided to Family: Family present for patient session Family Present for Patient Session: Parent(s)/guardian(s) (Mom & Dad) Family Participation: Supportive Evaluation Patient Behaviors Pre-Interventions: Appropriate for age, Makes eye contact, Interactive Patient Behaviors Post-Interventions: Appropriate for age, Makes eye contact, Interactive, Cooperative Evaluation/Plan of Care: Patient/family receptive Procedural Care Plan: Session Details: Introduced self and role to patient and parents. Patient easily engaged in conversation and shared that this was her first scope. Provided developmentally appropriate preparation and discussed her preferred coping techniques. Patient shared feeling anxious about the IV and that she planned to look away and pray during the IV placement. Provided support and encouraged deep breathing during start to increase positive coping. Patient appeared to cope well with her plan listed above and numbing medication as she held still. Accompanied patient to procedure room for support when going to sleep.Patient was observed to be cooperative and engaging with staff. Emotional support provided to patient and parents throughout visit. No further needs as patient was discharged. HAKAN Rader Doctor Of Medicine documented in this [facility] Work Phone: [phone]) 451-395812-18-2023 Hospital Discharge instructions* Discharge Instructions* Nilda Keenan RN - 07/06/2023 10:26 AM EST Discharge Instructions for EGD/Colonoscopy and Bronchoscopy Under Anesthesia 1. The medicines given to your child will last for about the next 24 hours, so he/she may be a little sleepier than normal. This sleepiness will wear off slowly. 2. Children should rest at home for the remained of the day. Because of the sedation they received,he/she should not ride a bike, drive a motor vehicle, climb, swim, wrestle, or rough house for the next 24 hours. Please pay particular attention when your child climbs stairs. 3. We strongly suggest you do not leave your child unattended for the next 24 hours. 4. Your child may experience some throat irritation from equipment passing by it. EGD/Colonoscopy 5. After the procedure, your child may slowly resume their normal diet. If your child should have nausea or vomiting, give them clear liquids then try to slowly advance to their regular diet. We recommend avoiding fried, spicy, or greasy foods the day of the procedure as they may cause additional gas. As long as your child is able to urinate, dehydration is not a concern; however, continue to encourage clear fluids. 6. Due to the air that is put through the endoscope, your child may experience some cramping, gas, burping, or hiccups. Encourage your child to be up and moving about as this will help ease the discomfort. 7. Biopsies are not painful but they can cause a small amount of bleeding. If biopsies were taken, your child may see small amounts of blood in their stool for the next 24 hours. If your child shouldvomit, a small amount of blood may be seen. 8. Tylenol can be given for any kind of discomfort for the next 24 hours. NO Motrin, Aspirin, or Ibuprofen. Bronchoscopy 9. Your child may run a low-grade temperature (less than 101 degrees Fahrenheit) 10. Your child may have a mild cough after the procedure which should resolve within 24 hours. Please contact us at [phone] if any of the following things are seen: excessive bleeding, severe abdominal pain, high fever (over 101 degrees) or anything else that seems unusual to you. Ask to speak with the Pediatric GI doctor or Pediatric Foundry Worker General attendant honor bar. I have received these written instruction and have had the opportunity to ask questions regarding the recovery period after my child's procedure. Signed: ___ Relationship to patient: Witness: __ documented [facility] Work Phone: [phone]) 246-573712-18-2023 Hospital Discharge instructions* Discharge Instructions* Nilda Keenan RN - 07/06/2023 10:26 AM EST Discharge Instructions for EGD/Colonoscopy and Bronchoscopy Under Anesthesia 1. The medicines given to your child will last for about the next 24 hours, so he/she may be a little sleepier than normal. This sleepiness will wear off slowly. 2. Children should rest at home for the remained of the day. Because of the sedation they received,he/she should not ride a bike, drive a motor vehicle, climb, swim, wrestle, or rough house for the next 24 hours. Please pay particular attention when your child climbs stairs. 3. We strongly suggest you do not leave your child unattended for the next 24 hours. 4. Your child may experience some throat irritation from equipment passing by it. EGD/Colonoscopy 5. After the procedure, your child may slowly resume their normal diet. If your child should have nausea or vomiting, give them clear liquids then try to slowly advance to their regular diet. We recommend avoiding fried, spicy, or greasy foods the day of the procedure as they may cause additional gas. As long as your child is able to urinate, dehydration is not a concern; however, continue to encourage clear fluids. 6. Due to the air that is put through the endoscope, your child may experience some cramping, gas, burping, or hiccups. Encourage your child to be up and moving about as this will help ease the discomfort. 7. Biopsies are not painful but they can cause a small amount of bleeding. If biopsies were taken, your child may see small amounts of blood in their stool for the next 24 hours. If your child shouldvomit, a small amount of blood may be seen. 8. Tylenol can be given for any kind of discomfort for the next 24 hours. NO Motrin, Aspirin, or Ibuprofen. Bronchoscopy 9. Your child may run a low-grade temperature (less than 101 degrees Fahrenheit) 10. Your child may have a mild cough after the procedure which should resolve within 24 hours. Please contact us at [phone] if any of the following things are seen: excessive bleeding, severe abdominal pain, high fever (over 101 degrees) or anything else that seems unusual to you. Ask to speak with the Pediatric GI doctor or Pediatric Foundry Worker General attendant honor bar. I have received these written instruction and have had the opportunity to ask questions regarding the recovery period after my child's procedure. Signed: ___ Relationship to patient: Witness: __ documented in this [facility] Work Phone: 1(651) 752-104812-14-2023 NoteHNO ID: [id number] Author: Juany Kwon PA-C Service: ? Author Type: Physician Behavioral Therapy Coordinator Type: Progress Notes Filed: 07/02/2023 1:56 PM Note Text: Juany Kwon PA-C Pediatric Orthopaedics and Scoliosis Surgery [place] [id number] , July 02, 2023 Injury Date - nearly 1 year Accompanied by: Mom VIRTUAL VISIT Subjective: Lenard Contreras was seen over the virtual platform for follow-up of her persistent left ankle pain. She had an MRI done yesterday. She continues to have pain, swelling, and episodes of instability. She did confirm that she did fall while doing the musical within the last 2 months. No other new injuries. Objective: No physical exam indicated Imaging: MRI of the left ankle obtained yesterday 07/01/2023 showed no acute bony abnormalities. There is an os trigonum as well as a ganglion cyst noted. Impression: Persistent left ankle pain and weakness Plan: Discussed results of the MRI with mom Will complete another course of physical therapy focusing on strengthening Follow with me after therapy if she continues to have pain and weakness. Juany Kwon PA-C I spent a total of 8 minutes on the date of the service which included preparing to see the patient, [id number] patient care, completing clinical documentation, obtaining and/or reviewing separately obtained history, and counseling and educating the patient/family/caregiver I have communicated my name and active licensure. The patient's identity and physical location were verified at the time of this visit. Either the patient or their legal telephone sales representative has been informed of the risks and benefits of -- and alternatives to -- treatment through a remote evaluation and consents to proceed with the evaluation remotely.[facility]12[facility]14[facility] History of Present illness Narrative* Juany Kwon PA-C - 07/02/2023 8:07 AM EST Juany Kwon PA-C Pediatric Orthopaedics and Scoliosis Surgery [place] [id number] , July 02, 2023 Injury Date - nearly 1 year Accompanied by: Mom VIRTUAL VISIT Subjective: Lenard Contreras was seen over the virtual platform for follow-up of her persistent left ankle pain. She had an MRI done yesterday. She continues to have pain, swelling, and episodes of instability. She did confirm that she did fall while doing the musical within the last 2 months. No other new injuries. Objective: No physical exam indicated Imaging: MRI of the left ankle obtained yesterday 07/01/2023 showed no acute bony abnormalities. There is an os trigonum as well as a ganglion cyst noted. Impression: Persistent left ankle pain and weakness Plan: Discussed results of the MRI with mom Will complete another course of physical therapy focusing on strengthening Follow with me after therapy if she continues to have pain and weakness. Juany Kwon PA-C I spent a total of 8 minutes on the date of the service which included preparing to see the patient, yqwa-qy-rpee patient care, completing clinical documentation, obtaining and/or reviewing separately obtained history, and counseling and educating the patient/family/caregiver I have communicated my name and active licensure. The patient's identity and physical location wereverified at the time of this visit. Either the patient or their legal telephone sales representative has been informed of the risks and benefits of -- and alternatives to -- treatment through a remote evaluation andconsents to proceed with the evaluation remotely. documented in this encounterC[facility] NoteHNO ID: [id number] Author: Song Jc RT(Brittany) Service: ? Author Type: Technologist Type: Progress Notes Filed: 07/01/2023 3:20 PM Note Text: Radiology Service Progress Note PATIENT NAME: Lenard Contreras DATE OF SERVICE: July 01, 2023 TIME: 3:19 PM PATIENT IDENTITY VERIFICATION COMPLETED USING TWO (2) IDENTIFIERS: Name and Date of confirmed by patient verbally. FALL SCREENING: Has the patient had 2 falls in the last year or 1 fall with injury or currently using an Ambulatory Assistive Device (Walker, Cane, Wheelchair, Crutches, etc.)? No PATIENT GENDER DATA: Female. status: : No status: NO. PATIENT RELEVANT IMPLANT DATA REVIEWED: Yes RADIOLOGY DEPARTMENT: MR; Exam(s) Completed: Lower MSK: Ankle/Hind Foot, left PERIPHERAL IV DATA: Not applicable SIGNED BY: RT Gian(Brittany) July 01, 2023 3:19 [facility]12-13-2023 History of Present illness Narrative* Song Jc RT(Brittany) - 07/01/2023 2:30 PM EST Radiology Service Progress Note PATIENT NAME: Lenard Contreras DATE OF SERVICE: July 01, 2023 TIME: 3:19 PM PATIENT IDENTITY VERIFICATION COMPLETED USING TWO (2) IDENTIFIERS: Name and Date of confirmedby patient verbally. FALL SCREENING: Has the patient had 2 falls in the last year or 1 fall with injury or currently using an Ambulatory Assistive Device (Walker, Cane, Wheelchair, Crutches, etc.)? No PATIENT GENDER DATA: Female. status: : No status: NO. PATIENT RELEVANT IMPLANT DATA REVIEWED: Yes RADIOLOGY DEPARTMENT: MR; Exam(s) Completed: Lower MSK: Ankle/Hind Foot, left PERIPHERAL IV DATA: Not applicable SIGNED BY: RT Gian(R) July 01, 2023 3:19 PM documented in this encounterC[facility]11-28-2023 NoteHNO ID: [id number] Author: Juany Kwon PA-C Service: ? Author Type: Physician Behavioral Therapy Coordinator Type: Progress Notes Filed: 06/16/2023 12:43 PM Note Text: Juany Kwon PA-C Pediatric Orthopaedics [place] [address] , June 16, 2023 Injury Date - ongoing since Aug Accompanied by: Mom and Dad VIRTUAL VISIT Subjective: Lenard Contreras is here for evaluation of her left ankle. I previously saw Lenard over the summertime for left ankle injury which had persistent pain for the last several months. Now her symptoms have been going on since August of this year. She was in a musical at school recently and noticed that she has had an increase in pain, ankle feels loose, and it has been buckling. She also has new onset of posterior discomfort. She has completed physical therapy, uses ice, and ibuprofen with minimal improvement. Maximal pain is lateral. Occasionally she has swelling. Objective: Over the virtual platform, I was able to evaluate her left ankle: Soft tissue swelling noted laterally. She has focal TTP over the distal fibula and near the ATFL. Appears to have full range of motion in all planes. She is able to stand on 1 ankle but unable to do a 1 legged hop. Unable to perform ykvm-uc-tmdh skiing motions. Grossly neurovascularly intact. Imaging: Recent x-rays of the left ankle obtained yesterday showed no acute bony abnormalities. Impression: Chronic left ankle pain with instability Plan: We will obtain an MRI to rule out any ligamentous injury given chronicity of pain, failed conservative distress, and instability with physical examination They will follow-up with a telephone or virtual appointment post scan to discuss risks. Juany Kwon PA-C I spent a total of 8 minutes on the date of the service which included preparing to see the patient, [id number] patient care, completing clinical documentation, obtaining and/or reviewing separately obtained history, performing a medically appropriate examination, counseling and educating the patient/family/caregiver, and ordering medications, tests, or procedures I have communicated my name and active licensure. The patient's identity and physical location were verified at the time of this visit. Either the patient or their legal telephone sales representative has been informed of the risks and benefits of -- and alternatives to -- treatment through a remote evaluation and consents to proceed with the evaluation remotely.[facility]11-27-2023 NoteHNO ID: [id number] Author: Leila Dodge RT(R) Service: ? Author Type: Master Cosmetologist Type: Progress Notes Filed: 06/15/2023 10:15 AM Note Text: Radiology Service Progress Note PATIENT NAME: Lenard Contreras DATE OF SERVICE: June 15, 2023 TIME: 10:05 AM PATIENT IDENTITY VERIFICATION COMPLETED USING TWO (2) IDENTIFIERS: Name and Date of confirmed by patient verbally. FALL SCREENING: Has the patient had 2 falls in the last year or 1 fall with injury or currently using an Ambulatory Assistive Device (Walker, Cane, Wheelchair, Crutches, etc.)? No PATIENT GENDER DATA: Female. status: : No status: NO. PATIENT RELEVANT IMPLANT DATA REVIEWED: Yes RADIOLOGY DEPARTMENT: General X-ray: Exam(s) Completed: Lower Extremity X-Ray(s): Ankle, Left PERIPHERAL IV DATA: Not applicable SIGNED BY: RT Jayla(R) June 15, 2023 10:05 [facility]10-03-2023 History of Present illness Narrative* Danna Hand MD - 04/21/2023 10:30 AM EDT Subjective History of Present Illness: Lenard Contreras is a 17 y.o. female who was seen at [facility] as a follow up visit for abdominal pain. History obtained from mother and patient. The patient was last seen in February 2023. At that time recommended Pepcid and Bentyl which has helped but still having post prandial abdominal pain almost daily. She had 1-2 instances where she didn't have pain after eating. She did throw up once but otherwise no persistent vomiting or dysphagia. Of note she has been on omeprazole in the past without improvement. Blood work done were all normal including TTG IgA. CBC with slightly low white count but was sick at time of labs. Review of Systems Review of Systems Gastrointestinal: Positive for abdominal pain. Negative for blood in stool, constipation and diarrhea. All other systems reviewed and are negative. Allergies No Known Allergies Medications Current Outpatient Medications Medication Instructions spironolactone (ALDACTONE) 25 mg, oral, Daily Objective Vitals: 04/21/23 1022 Weight: 71 kg Physical Exam Vitals reviewed. Constitutional: General: She is awake. Pulmonary: Effort: Pulmonary effort is normal. Abdominal: General: Abdomen is flat. Palpations: Abdomen is soft. There is no mass. Tenderness: There is no abdominal tenderness. Neurological: Mental Status: She is alert. Assessment/Plan Lenard Contreras is a 17 y.o. female who was seen in the [facility] today for post-prandial abdominal pain that has not improved with Pepcid and Bentyl. Recommend upper endoscopy for further evaluation. Follow up in 3 months. Danna Hand MD Attending Physician Pediatric Gastroenterology, Hepatology and Nutrition documented in this [facility] Work Phone: [phone]) 672-196508-24-2023 Discharge summary Author Deepthi Villalobos [facility] March 12, 2023 12:04pm Note Date/Time March 12, 2023 12 :04pm [facility] Physical Therapy [facility] [address] [place] [address]. [address] [place] [address] / REHABILITATION SERVICES DISCHARGE SUMMARY MR#: [id number] Acct: [id number] Name: LENARD CONTRERAS Rep #: [id number] : 2005 17 From: Deepthi Villalobos PT, Cert. MDT Referring : Status: REG RCR Insurance: [facility] SELF PAY INSURANCE Discharge Summary D/C summary: It has been my pleasure to treat LENARD CONTRERAS referred by JUANY KWON, with the diagnosis of ANTERIOR TALOFIBULAR SPRAIN L ANKLE for a total of 10 visit(s). Discharge Date: Please see the following information for a summary of their discharge status. Subjective Subjective: PATIENT REPORTS HER ANKLE IS ALL BETTER. SHE REPORTS SHE RAN A 1/2 MILE LAST WEEK AND DID OK SO RAN A MILE THURSDAY AND ALTHOUGH IT WAS A LITTLE SOREFROM NOT RUNNING MUCH FOR A LONG TIME THERE WAS NO PAIN. NO PAIN OR SORENESS TODAY. Pain LLE: Pain Intensity (Out of 10): 2 Overall Improvement % Improvement: 100 Objective Objective/Function: PATIENT WAS SEEN TODAY FOR RE-ASSESSMENT OF PROGRESS TOWARD THE SET PT GOALS AND THE NEED FOR FURTHER PHYSICAL THERAPY VS READINESS FOR DISCHARGE. UPON EXAM TODAY PATIENT DEMO'S FULL PAINFREE ROM, STRENGTH AND FUNCTION OF L ANKLE. THERE IS NO SWELLING OR BRUISING. HER FATHER IS PRESENT THROUGHOUT THE SESSION. 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 PATIENT AND HER FATHER ARE AGREEABLE. Goals Goal 1:: NORMALIZE GAIT PATTERN WITHOUT BRACE ON LEVEL SURFACES AND UP AND DOWN STEPS THEN UNEVEN SURFACES. Goal Progress: Goal Met Goal 2:: INCREASE PAINFREE FUNCTIONAL ROM OF L FOOT AND ANKLE TO EASE ADLS AND BEGIN TO RETURN TO PLOF Goal Progress: Goal Met Goal 3:: IMPROVE PAINFREE FUNCTIONAL STRENGTH OF L LE TO ALLOW FOR RETURN TO PLOF Goal Progress: Goal Met Goal 4:: PATIENT WILL BE INDEP WITH [facility] FOR CONTINUED IMPROVEMENT ONCE FORMAL PHYSICAL THERAPY CONCLUDES. Goal Progress: Goal Met Plan Plan: D/C D/C Information d/c sentence: If there are questions or concerns regarding this patient's physical therapy, please feel free to call me at [phone]. Thank you for the referral of thispatient. Sincerely, Deepthi Villalobos, PT, Cert MDT Balance/Gait/Functional tests Balance/Special Test Scores Lower Extremity Functional Score: 77 Improvement % Improvement: 100 <Electronically signed by Deepthi Villalobos PT, Cert. MDT> 03/12/23 1204 CC: Dr. Junito Mason MD; JUANY KWON ~ ANNE MARIE Signed [facility] Work Phone: [phone]) 216-894108-22-2023 Miscellaneous Notes* Telephone Encounter - Junito Mason MD - 03/10/2023 10:21 AM EDT The following approved medication requests have been transmitted electronically. Requested Prescriptions Signed Prescriptions Disp Refills omeprazole (PRILOSEC) 20 mg capsule 30 capsule 2 Sig: take 1 capsule by mouth once daily Authorizing Provider: JUNITO MASON MD * Telephone Encounter - Kena Vasquez LPN - 03/10/2023 9:43 AM EDT Pt is taking it daily and would like to continue. Last WCC: 01/13/2023 Verify RX Benefits Completed Last medication refill date: 01/12/2023 +1 refill Requesting 30 day supply Retail pharmacy updated: Completed Patient aware RX will be sent to pharmacy. No need to notify patient. Immunizations due: COVID-19 VACCINE(1) Never done GC (GONORRHEA) SCREENING (<18) Never done CHLAMYDIA SCREENING (<18) Never done MENINGOCOCCAL CONJUGATE(2 - 2-dose series) due on 2021 MENINGOCOCCAL B: Consider based on risk(1 of 2 - Patient Seeks Protection) Never done Kena Vasquez LPN documented in this encounterC[facility]06-27-[facility]23 NoteHNO ID: [id number] Author: Shameka Saucedo MD Service: ? Author Type: Physician Type: Progress Notes Filed: 01/13/2023 5:26 PM Note Text: WELL VISIT PEDIATRIC 14-17 YRS OLD Lenard is a 17 year old who presents today for well exam accompanied by her mother. 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 amoxicillin (AMOXIL) 500 mg capsule Take 500 mg by mouth once daily. Adapalene 0.3 % gel Apply to affected area once daily. mv,Ca,min/iron/FA/guarana/caff (ONE-A-DAY WOMEN'S ACTIVE ORAL) Take by mouth. cholecalciferol, vitamin D3, (VITAMIN D3 ORAL) Take by mouth. ascorbic acid (CLARK-C ORAL) Take by mouth. lactobacillus rhamnosus (CULTURELLE) 10 billion cell capsule Take 1 capsule by mouth once daily. Azelaic Acid 15 % gel iron bis-gly/FA/C/B12/Ca/succ (IRON / ORAL) Take 1 Dose Pack by mouth once daily. (Patient not taking: Reported on 01/02/2023) albuterol HFA (PROVENTIL HFA, VENTOLIN HFA) 90 mcg/actuation inhaler Inhale 2 Puffs as instructed every 4 hours as needed for wheezing/shortness of breath. fluticasone (FLONASE) 50 mcg/actuation nasal spray Use 1 [place] in each nostril daily at bedtime. loratadine (CLARITIN) 10 mg tablet Take 10 mg by mouth once daily. Using as needed FAMILY HISTORY Problem Relation Age of Onset Allergies Mother None Father Diabetes Father Cousin-juvenile diabetes Cancer Father Great aunt-Small cell lumg Social History Social History Narrative Not on file Smoking Exposure: Does your child spend a significant amount of time in the care of anyone who smokes? No School: Presently in 11th grade. No academic or school related concerns No behavioral concerns Any concerns regarding peer interactions? No Physical Activity: more than 1 hour of physical activity per day Screen Time totaling more than 2 hours of screen time per day. Fainting, dizziness, significant shortness of breath or chest pain with sports or exercise: No History of concussion in the last year: No Safety: Reviewed seat belts, bike helmets, and smoke detectors Diet: -Diet is well balanced and appropriate for age -Fruits and veggies are eaten with most meals -Drinks water daily -Regularly eats meals with family Elimination: no concerns, normal size and consistency Dental: dental care current Sleep: -no sleep concerns Yes, cell phone turned off before bedtime- Yes -computer in bedroom Vision: No vision concerns Hearing: No hearing concerns Growth: No growth concerns Gynecological history: LMP: 12/31/22 Cycles are regular and last 5 days. Dysmenorrhea: moderate Heavy periods: yes Substance use: none Sexual History: Attraction: male Sexually Active: No Body image: sometimes likes body Screening tools reviewed and discussed with patient/xomnhy-TSY-N and Social Determinants of Health. Please see Patient Entered Data. SDOH: Food Insecurity: Not on file Financial Resource Strain: Not on file Transportation Needs: Not on file Housing Stability: Not on file Discussed SDOH results with patient/family. SDOH needs identified: no concerns identified OBJECTIVE Physical Exam: BP 120/76 Pulse 72 Temp 36.7 ?C (98 ?F) (Temporal) Resp 16 Ht 165.9 cm (5' 5.32) Wt 69 kg (152 lb 3.2 oz) LMP 11/30/2022 BMI 25.08 kg/m? Blood pressure percentiles are 83 % systolic and 88 % diastolic based on the 2017 AAP Clinical Practice Guideline. This reading is in the elevated blood pressure range (BP >= 120/80). 84 %ile (Z= 0.98) based on CDC (Girls, 2-20 Years) BMI-for-age based on BMI available as of 01/13/2023. Last BMI: Wt: 69.9 kg (154 lb) (88 %, Z= 1.16)* BMI: 25.35 kg/(m2) Last 4 Encounter Wt Readings: Date: Wt: 01/02/2023 69.9 kg (154 lb) (88 %, Z= 1.16)* 12/30/2022 70.1 kg (154 lb 9.6 oz) (88 %, Z= 1.17)* 12/19/2022 71.3 kg (157 lb 3.2 oz) (89 %, Z= 1.24)* 06/03/2022 69.3 kg (152 lb 12.8 oz) (88 %, Z= 1.16)* Last 4 Encounter Ht Readings: Date: Ht: 06/03/2022 166 cm (5' 5.35) (69 %, Z= 0.48)* 05/12/2022 166.5 cm (5' 5.55) (71 %, Z= 0.56)* 03/05/2020 164 cm (5' 4.57) (66 %, Z= 0.40)* 07/04/2019 162.6 cm (5' 4) (64 %, Z= 0.35)* General: Well developed, No acute distress Head: normocephalic Eyes: conjunctivae/corneas clear Ears: normal external ear and canal, tympanic membranes with normal landmarks Nose: no erythema or rhinorrhea Oropharynx: moist mucous membranes, no erythema or exudate Neck: supple, no adenopathy Spine: Back symmetric, no curvature Resp: lungs clear to auscultation Hear (more content not included)...[facility]06-27-[facility] History of Present illness Narrative* Shameka Saucedo MD - 01/13/2023 11:04 AM EDT WELL VISIT PEDIATRIC 14-17 YRS OLD Lenard is a 17 year old who presents today for well exam accompanied by her mother. 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 amoxicillin (AMOXIL) 500 mg capsule Take 500 mg by mouth once daily. Adapalene 0.3 % gel Apply to affected area once daily. mv,Ca,min/iron/FA/guarana/caff (ONE-A-DAY WOMEN'S ACTIVE ORAL) Take by mouth. cholecalciferol, vitamin D3, (VITAMIN D3 ORAL) Take by mouth. ascorbic acid (CLARK-C ORAL) Take by mouth. lactobacillus rhamnosus (CULTURELLE) 10 billion cell capsule Take 1 capsule by mouth once daily. Azelaic Acid 15 % gel iron bis-gly/FA/C/B12/Ca/succ (IRON / ORAL) Take 1 Dose Pack by mouth once daily. (Patient not taking: Reported on 01/02/2023) albuterol HFA (PROVENTIL HFA, VENTOLIN HFA) 90 mcg/actuation inhaler Inhale 2 Puffs as instructed every 4 hours as needed for wheezing/shortness of breath. fluticasone (FLONASE) 50 mcg/actuation nasal spray Use 1 [place] in each nostril daily at bedtime. loratadine (CLARITIN) 10 mg tablet Take 10 mg by mouth once daily. Using as needed FAMILY HISTORY Problem Relation Age of Onset Allergies Mother None Father Diabetes Father Cousin-juvenile diabetes Cancer Father Great aunt-Small cell lumg Social History Social History Narrative Not on file Smoking Exposure: Does your child spend a significant amount of time in the care of anyone who smokes? No School: Presently in 11th grade. No academic or school related concerns No behavioral concerns Any concerns regarding peer interactions? No Physical Activity: more than 1 hour of physical activity per day Screen Time totaling more than 2 hours of screen time per day. Fainting, dizziness, significant shortness of breath or chest pain with sports or exercise: No History of concussion in the last year: No Safety: Reviewed seat belts, bike helmets, and smoke detectors Diet: -Diet is well balanced and appropriate for age -Fruits and veggies are eaten with most meals -Drinks water daily -Regularly eats meals with family Elimination: no concerns, normal size and consistency Dental: dental care current Sleep: -no sleep concerns Yes, cell phone turned off before bedtime- Yes -computer in bedroom Vision: No vision concerns Hearing: No hearing concerns Growth: No growth concerns Gynecological history: LMP: 12/31/22 Cycles are regular and last 5 days. Dysmenorrhea: moderate Heavy periods: yes Substance use: none Sexual History: Attraction: male Sexually Active: No Body image: sometimes likes body Screening tools reviewed and discussed with patient/stqfys-[id number]-V and Social Determinants of Health.Please see Patient Entered Data. SDOH: Food Insecurity: Not on file Financial Resource Strain: Not on file Transportation Needs: Not on file Housing Stability: Not on file Discussed SDOH results with patient/family. SDOH needs identified: no concerns identified OBJECTIVE Physical Exam: BP 120/76 Pulse 72 Temp 36.7 C (98 F) (Temporal) Resp 16 Ht 165.9 cm (5' 5.32) Wt 69 kg (152 lb 3.2 oz) LMP 11/30/2022 BMI 25.08 kg/m Blood pressure percentiles are 83 % systolic and 88 % diastolic based on the 2017 AAP Clinical Practice Guideline. This reading is in the elevated blood pressure range (BP >= 120/80). 84 %ile (Z= 0.98) based on CDC (Girls, 2-20 Years) BMI-for-age based on BMI available as of 01/13/2023. Last BMI: Wt: 69.9 kg (154 lb) (88 %, Z= 1.16)* BMI: 25.35 kg/(m^2) Last 4 Encounter Wt Readings: Date: Wt: 01/02/2023 69.9 kg (154 lb) (88 %, Z= 1.16)* 12/30/2022 70.1 kg (154 lb 9.6 oz) (88 %, Z= 1.17)* 12/19/2022 71.3 kg (157 lb 3.2 oz) (89 %, Z= 1.24)* 06/03/2022 69.3 kg (152 lb 12.8 oz) (88 %, Z= 1.16)* Last 4 Encounter Ht Readings: Date: Ht: 06/03/2022 166 cm (5' 5.35) (69 %, Z= 0.48)* 05/12/2022 166.5 cm (5' 5.55) (71 %, Z= 0.56)* 03/05/2020 164 cm (5' 4.57) (66 %, Z= 0.40)* 07/04/2019 162.6 cm (5' 4) (64 %, Z= 0.35)* General: Well developed, No acute distress Head: normocephalic Eyes: conjunctivae/corneas clear Ears: normal external ear and canal, tympanic membranes with normal landmarks Nose: no erythema or rhinorrhea Oropharynx: moist mucous membranes, no erythema or exudate Neck: supple, no adenopathy Spine: Back symmetric, no curvature Resp: lungs clear to auscultation Heart: RRR, normal S1 and S2. , No murmurs Breast: deferred Abdomen: Soft, nontender, nondistended, no palpable organomegaly or masses, normal bowel sounds Genitalia: deferred Extremities: Full ROM and no swelling, erythema or tenderness Neuro: No focal deficits or abnormal findings present Skin: no rashes ASSESSMENT & PLAN Well 17yo Epigastric abdominal painn - just started prilosec. Plans to increase to BID dosing if Sx are not improving next week. Has f/u in 2.5 wks. 84 %ile (Z= 0.98) based on CDC (Girls, 2-20 Years) BMI-for-age based on BMI available as of 01/13/2023. Lenard is healthy range (BMI 5th% - 84th%): -To maintain a healthy weight, discussed limiting screentime to less than 2 hours per day, physical activity for at least one hour per day, 5 servings of fruits and vegetables per day, 3 meals per day, family meals ar home and no sugar containing beverages Based on PHQ-A Score: 1 (recommended cut off score is 11) and interview, presentation is not consistent with depression - Adolescent anticipatory guidance discussed. - Discussed diet and safety. - Dental care discussed. - [employer] handout given (See Patient Instructions). - No immunizations were recommended to be given at this visit. - Follow up in one year for routine physical. Shameka Saucedo MD documented [facility] encounter[facility] Miscellaneous Notes* Telephone Encounter - Rose Dawson RN - 01/12/2023 11:42 AM EDT Mother notified. Rose Dawson RN * Telephone Encounter - Junito Mason MD - 01/12/2023 11:31 AM EDT The following approved medication requests have been transmitted electronically. Requested Prescriptions Signed Prescriptions Disp Refills omeprazole (PRILOSEC) 20 mg capsule 30 capsule 1 Sig: Take 1 capsule by mouth once daily. Authorizing Provider: JUNITO MASON MD * Telephone Encounter - Kena Vasquez LPN - 01/12/2023 11:19 AM EDT Mom called to say they have had trouble getting the Rx filled at [facility], and insurance was not covering. I called and spoke with the pharmacist and insurance will only cover Omeprazole capsules. I advisedmom and she would like pt to try the capsules. Pharmacy info was changed per mom's request. New Rx pended for review. documented in this encounterC[facility]06-16-2023 NoteHNO ID: [id number] Author: Junito Mason MD Service: ? Author Type: Physician Type: Progress Notes Filed: 01/03/2023 10:17 AM Note Text: PEDIATRIC ABDOMINAL PAIN VISIT Patient interviewed and examined with completely independent history and physical at bedside. Note above edited to reflect my findings and plan Junito Mason MD Lenard Contreras is a 17 year old accompanied by mother for abdominal pain. History was obtained from: mother and patient She had discussed abdominal pain in May of this year. At that time anxiety was thought to be a component. Symptoms have continued despite not having relationship to anxious feelings. Pain is described as: aching Onset of pain / discomfort: 9 month(s) ago Location: Periumbilical without radiation Severity: 4 to 8/10 When does it occur: 20 minutes after meals Frequency: After every meal Duration: 30 - 60 minutes Associated Symptoms: diarrhea regurgitation symptoms Lenard's attendance at school or social activities has been affected by her pain. Pain awakens patient from sleep: No Aggravating factors: movement, spicy foods, fatty foods, and coffee Symptoms associated w/ dairy intake: No Symptoms associated with fructose: No Symptoms associated w/ intake of other specific foods or meals: No Food Intake: Appropriate with adequate calcium intake Appetite changes: No Alleviating factors: none, pain goes away with time. Used TUMS for heartburn which doesn't help. Stool pattern at present time: 1-2 BM's per day Any change in BM pattern since pain started: No Difficulty/ straining/ pain w/ BM: No Gross blood in BM: No, Denies melena Nausea/ vomiting: No GERD symptoms: Yes Unintentional, abnormal wt loss or gain: No Exposures: Travel: No Camping / outdoors: No [place] / streams: No Raw foods: No Pets / reptile exposure: No Known stressors at home, school, social: No Family history of GI problems: Positive for: Great Grandmother had bleeding peptic ulcer, grandmother had diverticulitis Review Of Systems: Fever: No Rashes: No Joint pain: No Headache: No Respiratory: No cough, hemoptysis, asthma, recent chest infection, wheezing Cardiovascular: No history of chest pain, palpitation, orthopnea, cyanosis, pedal edema Genitourinary: No burning with urination, blood in urine or incontinence and No change in vaginal discharge, burning, dryness or itching Social history: non-contributory Alcohol Intake: No Drug use/abuse: No Depression: No Previous DiagnosticTests reviewed: No PAST MEDICAL HISTORY Diagnosis Date Jaundice at NEGATIVE MEDICAL HISTORY normal color vision Period disorder 01/19/2019 ACTIVE PROBLEM LIST Flat Feet - 03/01/2018 PAST SURGICAL HISTORY Procedure Laterality Date NONE FAMILY HISTORY Problem Relation Age of Onset Allergies Mother None Father Diabetes Father Cousin-juvenile diabetes Cancer Father Great aunt-Small cell lumg ALLERGIES Allergen Reactions Cats Cough Dust Cough Seasonal Allergies Cough MEDICATIONS: amoxicillin (AMOXIL) 500 mg capsule Take 500 mg by mouth once daily. Adapalene 0.3 % gel Apply to affected area once daily. mv,Ca,min/iron/FA/guarana/caff (ONE-A-DAY WOMEN'S ACTIVE ORAL) Take by mouth. cholecalciferol, vitamin D3, (VITAMIN D3 ORAL) Take by mouth. ascorbic acid (CLARK-C ORAL) Take by mouth. lactobacillus rhamnosus (CULTURELLE) 10 billion cell capsule Take 1 capsule by mouth once daily. Azelaic Acid 15 % gel albuterol HFA (PROVENTIL HFA, VENTOLIN HFA) 90 mcg/actuation inhaler Inhale 2 Puffs as instructed every 4 hours as needed for wheezing/shortness of breath. fluticasone (FLONASE) 50 mcg/actuation nasal spray Use 1 [place] in each nostril daily at bedtime. iron bis-gly/FA/C/B12/Ca/succ (IRON /7 ORAL) Take 1 Dose Pack by mouth once daily. (Patient not taking: Reported on 01/02/2023) loratadine (CLARITIN) 10 mg tablet Take 10 mg by mouth once daily. Using as needed PHYSICAL EXAMINATION: Pulse 80 Temp 36.8 ?C (98.3 ?F) (Temporal Artery) Resp 18 Wt 69.9 kg (154 lb) LMP 11/30/2022 GENERAL: alert and active in no apparent distress CARDIOVASCULAR: Normal rate, regular rhythm, no murmur LUNGS: clear to auscultation bilaterally, good air exchange, no retractions ABDOMEN: soft, nondistended, normal bowel sounds. Tenderness: none Masses: none Organomegaly: none Rectal: deferred ASSESSMENT/PLAN: Lenard Contreras is a 17 year old female who presents with abdominal pain. Assessment - History is consistent with a peptic ulcer Plan - Start trial of 20 mg omeprazole daily for 2-4 weeks. Instructed patient to call office if pain does not improve by two weeks. If pain does not improve, increase dose to to 20 mg tablets per day. Plan to follow up in 2-4 weeks. If trial is effective, then can discuss switching to H2 carlos at next visit. If trial is ineffective, can then test for H. Py (more content not included)...[facility] History of Present illness Narrative* Junito Mason MD - 01/02/2023 3:32 PM EDT PEDIATRIC ABDOMINAL PAIN VISIT Patient interviewed and examined with completely independent history and physical at bedside. Note above edited to reflect my findings and plan Junito Mason MD Lenard Contreras is a 17 year old accompanied by mother for abdominal pain. History was obtained from: mother and patient She had discussed abdominal pain in May of this year. At that time anxiety was thought to be acomponent. Symptoms have continued despite not having relationship to anxious feelings. Pain is described as: aching Onset of pain / discomfort: 9 month(s) ago Location: Periumbilical without radiation Severity: 4 to 8/10 When does it occur: 20 minutes after meals Frequency: After every meal Duration: 30 - 60 minutes Associated Symptoms: diarrhea regurgitation symptoms Lenard's attendance at school or social activities has been affected by her pain. Pain awakens patient from sleep: No Aggravating factors: movement, spicy foods, fatty foods, and coffee Symptoms associated w/ dairy intake: No Symptoms associated with fructose: No Symptoms associated w/ intake of other specific foods or meals: No Food Intake: Appropriate with adequate calcium intake Appetite changes: No Alleviating factors: none, pain goes away with time. Used TUMS for heartburn which doesn't help. Stool pattern at present time: 1-2 BM's per day Any change in BM pattern since pain started: No Difficulty/ straining/ pain w/ BM: No Gross blood in BM: No, Denies melena Nausea/ vomiting: No GERD symptoms: Yes Unintentional, abnormal wt loss or gain: No Exposures: Travel: No Camping / outdoors: No [place] / streams: No Raw foods: No Pets / reptile exposure: No Known stressors at home, school, social: No Family history of GI problems: Positive for: Great Grandmother had bleeding peptic ulcer, grandmother had diverticulitis Review Of Systems: Fever: No Rashes: No Joint pain: No Headache: No Respiratory: No cough, hemoptysis, asthma, recent chest infection, wheezing Cardiovascular: No history of chest pain, palpitation, orthopnea, cyanosis, pedal edema Genitourinary: No burning with urination, blood in urine or incontinence and No change in vaginal discharge, burning, dryness or itching Social history: non-contributory Alcohol Intake: No Drug use/abuse: No Depression: No Previous DiagnosticTests reviewed: No PAST MEDICAL HISTORY Diagnosis Date Jaundice at NEGATIVE MEDICAL HISTORY normal color vision Period disorder 01/19/2019 ACTIVE PROBLEM LIST Flat Feet - 03/01/2018 PAST SURGICAL HISTORY Procedure Laterality Date NONE FAMILY HISTORY Problem Relation Age of Onset Allergies Mother None Father Diabetes Father Cousin-juvenile diabetes Cancer Father Great aunt-Small cell lumg ALLERGIES Allergen Reactions Cats Cough Dust Cough Seasonal Allergies Cough MEDICATIONS: amoxicillin (AMOXIL) 500 mg capsule Take 500 mg by mouth once daily. Adapalene 0.3 % gel Apply to affected area once daily. mv,Ca,min/iron/FA/guarana/caff (ONE-A-DAY WOMEN'S ACTIVE ORAL) Take by mouth. cholecalciferol, vitamin D3, (VITAMIN D3 ORAL) Take by mouth. ascorbic acid (CLARK-C ORAL) Take by mouth. lactobacillus rhamnosus (CULTURELLE) 10 billion cell capsule Take 1 capsule by mouth once daily. Azelaic Acid 15 % gel albuterol HFA (PROVENTIL HFA, VENTOLIN HFA) 90 mcg/actuation inhaler Inhale 2 Puffs as instructed every 4 hours as needed for wheezing/shortness of breath. fluticasone (FLONASE) 50 mcg/actuation nasal spray Use 1 [place] in each nostril daily at bedtime. iron bis-gly/FA/C/B12/Ca/succ (IRON 21/7 ORAL) Take 1 Dose Pack by mouth once daily. (Patient not taking: Reported on 01/02/2023) loratadine (CLARITIN) 10 mg tablet Take 10 mg by mouth once daily. Using as needed PHYSICAL EXAMINATION: Pulse 80 Temp 36.8 C (98.3 F) (Temporal Artery) Resp 18 Wt 69.9 kg (154 lb) LMP 11/30/2022 GENERAL: alert and active in no apparent distress CARDIOVASCULAR: Normal rate, regular rhythm, no murmur LUNGS: clear to auscultation bilaterally, good air exchange, no retractions ABDOMEN: soft, nondistended, normal bowel sounds. Tenderness: none Masses: none Organomegaly: none Rectal: deferred ASSESSMENT/PLAN: Lenard Contreras is a 17 year old female who presents with abdominal pain. Assessment - History is consistent with a peptic ulcer Plan - Start trial of 20 mg omeprazole daily for 2-4 weeks. Instructed patient to call office if pain does not improve by two weeks. If pain does not improve, increase dose to to 20 mg tablets per day. Plan to follow up in 2-4 weeks. If trial is effective, then can discuss switching to H2 carlos at next visit. If trial is ineffective, can then test for H. Pylori, order labs and imaging. Follow up: follow up with me in 2-4 weeks. She is leaving for camp next week and will be gone for a week. documented in this encounterC[facility]23 Instructions* Patient Instructions* Junito Mason MD - 01/02/2023 3:32 PM EDT 5 to Go!TM Healthy Kids Inside & Out 5 Eat FIVE fruits and veggies a day 4 Give and get FOUR compliments a day 3 Consume THREE calcium products a day 2 Limit media time to TWO hours a day 1 Get at least ONE hour of exercise a day 0 Consume ZERO sugar-sweetened drinks Go! Be healthy, inside and out! [email or web address] documented in this encounterC[facility]06-13-2023 NoteHNO ID: [id number] Author: Ochoa Patel APRN.BOX BLANK MACHINE OPERATOR HELPER Service: ? Author Type: Nurse Practitioner Type: Progress Notes Filed: 12/30/2022 10:08 AM Note Text: Subjective HPI Nontoxic female presents urgent care chief complaint sore throat. Duration of symptoms 3 days. Associated symptoms sore throat woke up this morning had a rash around her mouth palms of hands and face. States rash is painful. No OTC medication use. Is currently on amoxicillin 500 mg daily. Prescribed by dermatology. Denies any fever body aches chills productive cough chest pain shortness of breath pleuritic pain hemoptysis nausea vomiting abdominal pain change in bowel or bladder habits. Past medical history prescription medication use and allergies reviewed. .Patient presents with: Sore Throat: ST x 3 days and rash around mouth and eyes x 1 day PAST MEDICAL HISTORY Diagnosis Date Jaundice at NEGATIVE MEDICAL HISTORY normal color vision Period disorder 01/19/2019 PAST SURGICAL HISTORY Procedure Laterality Date NONE ALLERGIES Cats, Dust, and Seasonal Allergies MEDICATIONS amoxicillin (AMOXIL) 500 mg capsule Take 500 mg by mouth once daily. Adapalene 0.3 % gel Apply to affected area once daily. mv,Ca,min/iron/FA/guarana/caff (ONE-A-DAY WOMEN'S ACTIVE ORAL) Take by mouth. cholecalciferol, vitamin D3, (VITAMIN D3 ORAL) Take by mouth. ascorbic acid (CLARK-C ORAL) Take by mouth. lactobacillus rhamnosus (CULTURELLE) 10 billion cell capsule Take 1 capsule by mouth once daily. Azelaic Acid 15 % gel iron bis-gly/FA/C/B12/Ca/succ (IRON 21/7 ORAL) Take 1 Dose Pack by mouth once daily. albuterol HFA (PROVENTIL HFA, VENTOLIN HFA) 90 mcg/actuation inhaler Inhale 2 Puffs as instructed every 4 hours as needed for wheezing/shortness of breath. fluticasone (FLONASE) 50 mcg/actuation nasal spray Use 1 [place] in each nostril daily at bedtime. loratadine (CLARITIN) 10 mg tablet Take 10 mg by mouth once daily. Using as needed FAMILY HISTORY Problem Relation Age of Onset Allergies Mother None Father Diabetes Father Cousin-juvenile diabetes Cancer Father Great aunt-Small cell lumg Social History Tobacco Use Smoking status: Never Passive exposure: Never Smokeless tobacco: Never Vaping Use Vaping Use: Never used Substance Use Topics Alcohol use: No Drug use: No BP 122/72 Pulse 81 Temp 36.7 ?C (98 ?F) (Tympanic) Resp 18 Wt 70.1 kg (154 lb 9.6 oz) LMP 11/30/2022 SpO2 97% Review of Systems Constitutional: Negative for chills, fever and malaise/fatigue. HENT: Positive for sore throat. Negative for congestion, ear discharge, ear pain and sinus pain. Eyes: Negative for blurred vision, pain, discharge and redness. Respiratory: Negative for cough, hemoptysis, sputum production, shortness of breath, wheezing and stridor. Cardiovascular: Negative for chest pain. Gastrointestinal: Negative for abdominal pain, diarrhea, nausea and vomiting. Musculoskeletal: Negative for myalgias. Skin: Positive for rash. Negative for itching. Neurological: Positive for headaches. Negative for dizziness. Objective Physical Exam Constitutional: General: She is not in acute distress. Appearance: She is not diaphoretic. HENT: Head: Normocephalic. Jaw: No trismus, tenderness, swelling or pain on movement. Comments: Maculopapule with some vesicles with erythematous base noted highlighted area. Some crusting noted. Nose: Nose normal. Mouth/Throat: Lips: [place]. Mouth: Mucous membranes are moist. Pharynx: Oropharynx is clear. Uvula midline. Posterior oropharyngeal erythema present. No pharyngeal swelling, oropharyngeal exudate or uvula swelling. Tonsils: No tonsillar exudate or tonsillar abscesses. Comments: Erythema with some ulcers noted highlighted area. Eyes: General: Lids are normal. Right eye: No discharge. Left eye: No discharge. Conjunctiva/sclera: Conjunctivae normal. Right eye: Right conjunctiva is not injected. No hemorrhage. Left eye: Left conjunctiva is not injected. No hemorrhage. Pupils: Pupils are equal, round, and reactive to light. Cardiovascular: Rate and Rhythm: Normal rate and regular rhythm. Heart sounds: Normal heart sounds. Pulmonary: Effort: Pulmonary effort is normal. No tachypnea, accessory muscle usage or respiratory distress. Breath sounds: Normal breath sounds. No stridor. No wheezing or rales. Abdominal: Palpations: Abdomen is soft. Tenderness: There is no abdominal tenderness. There is no guarding or rebound. Musculoskeletal: Cervical back: Normal range of motion and neck supple. No rigidity or tenderness. Comments: Erythematous base macular noted on patient's palms of hands. No desquamation of skin. Lymphadenopathy: Cervical: No cervical adenopathy. Skin: General: Skin is warm and dry. Neurological: Mental Status: She is alert and oriented to person, place, and time. ASSESSMENT/PLAN: 1. Hand, yessi (more content not included)...[facility] Instructions* Patient Instructions* Ochoa Patel APRN.[facility] - 12/30/2022 9:53 AM EDT Xiqp-Vnbj-Bgjnz Disease Definition Pzfw-yegf-cuzau disease is a relatively common infection viral infection that usually begins in the throat. A similar infection is herpangina. Causes Yjwd-lldx-grg-mouth disease (HFMD) is most commonly caused by coxsackievirus A16, a member of the enterovirus family. The disease is not spread from pets, but it can be spread by person to person. You may cacth it if you come into direct contact with nose and throat discharges, saliva, fluid from blisters, or the stools of an infected person. You are most contagious the first week you have the disease. The time between infection and the development of symptoms is about 3 - 7 days. The most important risk factor is age. The infection occurs most often in children under age 10, but can be seen in adolescents and occasionally adults. The outbreaks occur most often in the summer and early fall. Symptoms Fever Headache Loss of appetite Rash with very small blisters on hands, feet, and diaper area; may be tender or painful if pressed Sore throat Ulcers in the throat (including tonsils), mouth, and tongue Exams and Tests A history of recent illness and a physical examination, demonstrating the characteristic vesicles on the hands and feet, are usually sufficient to diagnose the disease. Treatment There is no specific treatment for the infection other than relief of symptoms. Treatment with antibiotics is not effective, and is not indicated. Jmyt-xou-vmzaexr medicines, suchas Tylenol (acetaminophen) can be used to treat fever. Aspirin should not be used in viral illnesses in children under age 12 years. Salt water mouth rinses (1/2 teaspoon of salt to 1 glass of warm water) may be soothing if the child is able to rinse without swallowing. Make sure your child gets plenty of fluids. Extra fluid is needed when a fever is present. The best fluids are cold milk products. Many children refuse juices and sodas because their acid content causes burning pain in the ulcers. [place] (Prognosis) Generally, complete recovery occurs in 5 to 7 days. Possible Complications Dehydration Febrile seizures When to Contact a Medical Professional Call your doctor if there are signs of complications, such as pain in neck or arms and legs. Emergency symptoms include convulsions. You should also call if: A high fever is not reduced by medication Signs of dehydration occur: Dry skin and mucus membranes Weight loss Irritability Lethargy Decreased or dark urine. Prevention Avoid contact with people with known illness. Practice strict hand washing if in contact with infected children. documented in this encounterC[facility]cy [facility] History of Present illness Narrative* Ochoa Patel APRN.RENO - 12/30/2022 9:41 AM EDT Images from the original note were not included. Subjective HPI Nontoxic female presents urgent care chief complaint sore throat. Duration of symptoms 3 days. Associated symptoms sore throat woke up this morning had a rash around her mouth palms of hands and face. States rash is painful. No OTC medication use. Is currently on amoxicillin 500 mg daily. Prescribed by dermatology. Denies any fever body aches chills productive cough chest pain shortness of breathpleuritic pain hemoptysis nausea vomiting abdominal pain change in bowel or bladder habits. Past medical history prescription medication use and allergies reviewed. .Patient presents with: Sore Throat: ST x 3 days and rash around mouth and eyes x 1 day PAST MEDICAL HISTORY Diagnosis Date Jaundice at NEGATIVE MEDICAL HISTORY normal color vision Period disorder 01/19/2019 PAST SURGICAL HISTORY Procedure Laterality Date NONE ALLERGIES Cats, Dust, and Seasonal Allergies MEDICATIONS amoxicillin (AMOXIL) 500 mg capsule Take 500 mg by mouth once daily. Adapalene 0.3 % gel Apply to affected area once daily. mv,Ca,min/iron/FA/guarana/caff (ONE-A-DAY WOMEN'S ACTIVE ORAL) Take by mouth. cholecalciferol, vitamin D3, (VITAMIN D3 ORAL) Take by mouth. ascorbic acid (CLARK-C ORAL) Take by mouth. lactobacillus rhamnosus (CULTURELLE) 10 billion cell capsule Take 1 capsule by mouth once daily. Azelaic Acid 15 % gel iron bis-gly/FA/C/B12/Ca/succ (IRON 21/7 ORAL) Take 1 Dose Pack by mouth once daily. albuterol HFA (PROVENTIL HFA, VENTOLIN HFA) 90 mcg/actuation inhaler Inhale 2 Puffs as instructed every 4 hours as needed for wheezing/shortness of breath. fluticasone (FLONASE) 50 mcg/actuation nasal spray Use 1 Hampton in each nostril daily at bedtime. loratadine (CLARITIN) 10 mg tablet Take 10 mg by mouth once daily. Using as needed FAMILY HISTORY Problem Relation Age of Onset Allergies Mother None Father Diabetes Father Cousin-juvenile diabetes Cancer Father Great aunt-Small cell lumg Social History Tobacco Use Smoking status: Never Passive exposure: Never Smokeless tobacco: Never Vaping Use Vaping Use: Never used Substance Use Topics Alcohol use: No Drug use: No BP 122/72 Pulse 81 Temp 36.7 C (98 F) (Tympanic) Resp 18 Wt 70.1 kg (154 lb 9.6 oz) LMP 11/30/2022 SpO2 97% Review of Systems Constitutional: Negative for chills, fever and malaise/fatigue. HENT: Positive for sore throat. Negative for congestion, ear discharge, ear pain and sinus pain. Eyes: Negative for blurred vision, pain, discharge and redness. Respiratory: Negative for cough, hemoptysis, sputum production, shortness of breath, wheezing and stridor. Cardiovascular: Negative for chest pain. Gastrointestinal: Negative for abdominal pain, diarrhea, nausea and vomiting. Musculoskeletal: Negative for myalgias. Skin: Positive for rash. Negative for itching. Neurological: Positive for headaches. Negative for dizziness. Objective Physical Exam Constitutional: General: She is not in acute distress. Appearance: She is not diaphoretic. HENT: Head: Normocephalic. Jaw: No trismus, tenderness, swelling or pain on movement. Comments: Maculopapule with some vesicles with erythematous base noted highlighted area. Some crusting noted. Nose: Nose normal. Mouth/Throat: Lips: [place]. Mouth: Mucous membranes are moist. Pharynx: Oropharynx is clear. Uvula midline. Posterior oropharyngeal erythema present. No pharyngeal swelling, oropharyngeal exudate or uvula swelling. Tonsils: No tonsillar exudate or tonsillar abscesses. Comments: Erythema with some ulcers noted highlighted area. Eyes: General: Lids are normal. Right eye: No discharge. Left eye: No discharge. Conjunctiva/sclera: Conjunctivae normal. Right eye: Right conjunctiva is not injected. No hemorrhage. Left eye: Left conjunctiva is not injected. No hemorrhage. Pupils: Pupils are equal, round, and reactive to light. Cardiovascular: Rate and Rhythm: Normal rate and regular rhythm. Heart sounds: Normal heart sounds. Pulmonary: Effort: Pulmonary effort is normal. No tachypnea, accessory muscle usage or respiratory distress. Breath sounds: Normal breath sounds. No stridor. No wheezing or rales. Abdominal: Palpations: Abdomen is soft. Tenderness: There is no abdominal tenderness. There is no guarding or rebound. Musculoskeletal: Cervical back: Normal range of motion and neck supple. No rigidity or tenderness. Comments: Erythematous base macular noted on patient's palms of hands. No desquamation of skin. Lymphadenopathy: Cervical: No cervical adenopathy. Skin: General: Skin is warm and dry. Neurological: Mental Status: She is alert and oriented to person, place, and time. ASSESSMENT/PLAN: 1. Hand, foot, mouth disease - ICD9: 074.3, ICD10: B08.4 Diagnosed with rgap-ryrt-rrz-mouth disease. Treat conservatively at this time. Supportive therapiesdiscussed. Red flags for evaluation discussed. Patient was educated on supportive therapies. Patient will follow up with primary care provider as needed. Patient was instructed to immediately proceed to emergency room for any new, worsening, or symptoms lasting longer than anticipated. The patient's clinical presentation is otherwise unremarkable at this time. Based on exam and clinical finding, the patient is stable for discharge. Plan of care was discussed with patient. Patient/mom verbalizes understanding and agrees to plan of care. Thisnote was generated using [employer] software. It may contain errors in wording, punctuation, or spelling. Ochoa Patel APRN.BOX BLANK MACHINE OPERATOR HELPER documented in this encounterCleveland [facility]23 NoteHNO ID: [id number] Author: Juany Kwon PA-C Service: ? Author Type: Physician Behavioral Therapy Coordinator Type: Progress Notes Filed: 12/31/2022 7:36 AM Note Text: Juany Kwon PA-C [facility] Sc[facility] [place] [id number] , December 29, 2022 Injury Date - 08/14/2022 Accompanied by: Mom Subjective: Lenard Contreras is here for evaluation of left ankle injury. Forms ago, she was jumping up and down when she came down and sustained an inversion injury. She initially was seen by her automotive dismantler. X-rays were within normal limits. She was encouraged to use an air cast, but Lenard admits that she was on the complaint for couple of days. She started wearing an OTC brace which has provided some support. 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 Denies any numbness, tingling, or instability. Pain is around the entire ankle. Objective: Left ankle: Patient imaged with nonantalgic gait. She has a soft figure 8 brace on today. No TTP over the medial or lateral malleoli Or the base of fifth metatarsal. Mild pain over the ATFL and tib-fib joint. She has full range of motion in all planes. Strength is maintained but mild painful with abduction and adduction. No AP instability. Neurovascularly intact. Imaging: X-rays obtained 07-26-2022 of the left ankle show no acute bony abnormalities Impression: Left ankle sprain Plan: New lace up ankle brace PT Modified light activities Follow up in person or virtually if pain does not improve; will likely need new XR prior to MRI [facility] NoteHNO ID: [id number] Author: Carolyn Walters APRN.RENO Service: ? Author Type: Nurse Practitioner Type: Progress Notes Filed: 12/19/2022 11:53 AM Note Text: PEDIATRIC ELIZONDO/ANKLE/FOOT INJURY VISIT Lenard Contreras is a 17 year old female presenting with injury to her left ankle(s). Sprain to left ankle 4 months ago, has been having pain with walking, or it is held in certain positions since the sprain. Has been wearing shoes with support only and pain is worsening. Seen in office by Dr. Mason on 08/15/22. Xray was normal. Advised to wear walking boot or aircast with crutches. She used crutches with an aircast for 1 day only. After that, wore a brace she had, but infrequently. 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, nearly crying in pain Cannot stand on left tip toes No known reinjury Has tried ice and ibuprofen History was obtained from: patient HPI: Date of the injury or when pain began: 4 months ago History of the injury: pain on and off, but more consistent recently Able to ambulate: Yes Bruising: No Swelling: No Numbness/Tingling: No Radiation of the pain: Yes, into heel Pain Scale: reports 4-5/10 in clinic now, reports 8/10 after working last night Pain is made worse by: running and walking, standing Pain is relieved by: rest Treatment attempted: Ibuprofen and ice Night pain: No Pain since injury: intermittently better, worse now Prior injuries to this area: None ROS: Redness/swelling of other joints: No New or atypical rashes: No Physical exam: BP 106/76 Pulse 80 Temp 37.3 ?C (99.2 ?F) (Temporal Artery) Resp 16 Wt 71.3 kg (157 lb 3.2 oz) LMP 11/30/2022 General: Well developed, No acute distress Musculoskeletal: Ankle: no swelling or bruising, and mildly tender upon palpation over medial malleolus, lateral malleolus and peroneal tendon, full ROM, full flexion and extension Gait: normal gait Neuro: Sensation intact to light touch and intact to pain Skin: Normal color, texture and turgor. No rashes. Assessment/Plan: Encounter Diagnosis ICD-10-CM 1. Sprain of left ankle, unspecified ligament, subsequent encounter S93.402D CONSULT TO ORTHO/PEDIATRICS - Recommend further evaluation with orthopedics d/t persistent symptoms - Continue wearing brace, rest, ibuprofen - Return to clinic for persistent or worsening symptoms, or other concerns. Carolyn Walters APR[facility] History of Present illness Narrative* Carolyn Walters APRN.RENO - 12/19/2022 11:07 AM EDT PEDIATRIC ELIZONDO/ANKLE/FOOT INJURY VISIT Lenard Contreras is a 17 year old female presenting with injury to her left ankle(s). Sprain to left ankle 4 months ago, has been having pain with walking, or it is held in certain positions since the sprain. Has been wearing shoes with support only and pain is worsening. Seen in office by Dr. Mason on 08/15/22. Xray was normal. Advised to wear walking boot or aircast with crutches. She used crutches with an aircast for 1 day only. After that, wore a brace she had, but infrequently. 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, nearly crying in pain Cannot stand on left tip toes No known reinjury Has tried ice and ibuprofen History was obtained from: patient HPI: Date of the injury or when pain began: 4 months ago History of the injury: pain on and off, but more consistent recently Able to ambulate: Yes Bruising: No Swelling: No Numbness/Tingling: No Radiation of the pain: Yes, into heel Pain Scale: reports 4-5/10 in clinic now, reports 8/10 after working last night Pain is made worse by: running and walking, standing Pain is relieved by: rest Treatment attempted: Ibuprofen and ice Night pain: No Pain since injury: intermittently better, worse now Prior injuries to this area: None ROS: Redness/swelling of other joints: No New or atypical rashes: No Physical exam: BP 106/76 Pulse 80 Temp 37.3 C (99.2 F) (Temporal Artery) Resp 16 Wt 71.3 kg (157 lb 3.2 oz) LMP 11/30/2022 General: Well developed, No acute distress Musculoskeletal: Ankle: no swelling or bruising, and mildly tender upon palpation over medial malleolus, lateral malleolus and peroneal tendon, full ROM, full flexion and extension Gait: normal gait Neuro: Sensation intact to light touch and intact to pain Skin: Normal color, texture and turgor. No rashes. Assessment/Plan: Encounter Diagnosis ICD-10-CM 1. Sprain of left ankle, unspecified ligament, subsequent encounter S93.402D CONSULT TO ORTHO/PEDIATRICS - Recommend further evaluation with orthopedics d/t persistent symptoms - Continue wearing brace, rest, ibuprofen - Return to clinic for persistent or worsening symptoms, or other concerns. Carolyn Walters APRN.RENO documented in this encounterCleveland Clinic [facility]06-02-2023 Instructions* Patient Instructions* Carolyn Walters APRN.CNP - 12/19/2022 11:07 AM EDT 5 to Go!TM Healthy Kids Inside & Out 5 Eat FIVE fruits and veggies a day 4 Give and get FOUR compliments a day 3 Consume THREE calcium products a day 2 Limit media time to TWO hours a day 1 Get at least ONE hour of exercise a day 0 Consume ZERO sugar-sweetened drinks Go! Be healthy, inside and out! [email or web address] documented in this encounterCleveland Clinic Mer[facility]01-27-2023 NoteHNO ID: [id number] Author: Sia Lewis, RT(R) Service: ? Author Type: Technologist Type: Progress Notes Filed: 08/15/2022 9:48 AM Note Text: Radiology Service Progress Note PATIENT NAME: Lenard Contreras DATE OF SERVICE: August 15, 2022 TIME: 9:48 AM PATIENT IDENTITY VERIFICATION COMPLETED USING TWO (2) IDENTIFIERS: Name and Date of confirmed by patient verbally. FALL SCREENING: Has the patient had 2 falls in the last year or 1 fall with injury or currently using an Ambulatory Assistive Device (Walker, Cane, Wheelchair, Crutches, etc.)? No PATIENT GENDER DATA: Female. status: : No status: NO. PATIENT RELEVANT IMPLANT DATA REVIEWED: Not Applicable RADIOLOGY DEPARTMENT: General X-ray: Exam(s) Completed: Lower Extremity X-Ray(s): Ankle, Left PERIPHERAL IV DATA: Not applicable SIGNED BY: Sia Lewis, RT(R) August 15, 2022 9:48 [facility]01-27-[facility] NoteHNO ID: [id number] Author: Junito Mason MD Service: ? Author Type: Physician Type: Progress Notes Filed: 08/15/2022 1:58 PM Note Text: PEDIATRIC ELIZONDO/ANKLE/FOOT INJURY VISIT SERVICE DATE: 08/15/2022 Lenard Contreras is a 17 year old female accompanied by father presenting with injury to her left ankle(s). HPI: Date of the injury or when pain began: last night History of the injury: Was jumping in a [place] and then landed on on inverted foot Able to ambulate: No- was able to just after injury but not now Bruising: Yes Swelling: Yes Numbness/Tingling: Yes Radiation of the pain: No Pain is made worse by: touching skin or weight bearing Pain is relieved by: rest Treatment attempted: ice Night pain: Yes Pain since injury: worse Prior injuries to this area: None Past Medical History: Prior stress fracture: No Prior ankle sprains: No Family History: Rheumatologic issue: No Arthritis: No Stress fracture: No FAMILY HISTORY Problem Relation Age of Onset Allergies Mother None Father Diabetes Father Cousin-juvenile diabetes Cancer Father Great aunt-Small cell lumg ROS: Redness/swelling of other joints: No New or atypical rashes: No Physical exam: BP (P) 102/66 Pulse (P) 68 Temp (P) 37 ?C (98.6 ?F) (Temporal) Resp (P) 16 Wt (P) 69.3 kg (152 lb 12.8 oz) LMP 08/11/2022 General: Well developed, No acute distress Musculoskeletal: Elizondo: bruising noted on the left medial mid elizondo Ankle: swelling, tender upon palpation over medial malleolus, lateral malleolus, and ATFL, and unable to bear weight Foot: symmetric Gait: Using crutches and unable to bear weight on the left Neuro: Sensation intact to light touch and intact to pain; ankle jerk reflex + Skin: Normal color, texture and turgor. No rashes. Xrays: Left ankle Assessment/Plan: Encounter Diagnosis ICD-10-CM 1. Sprain of left ankle, unspecified ligament, initial encounter S93.402A XR ANKLE GENERAL 3V AP/LAT/OBL LEFT - Ice-15 minutes three times per day - Qrtms-zsxsmwv-rus was able to stand and bear some weight but not walk on the left ankle. - Ibuprofen as needed -I discussed using an Aircast and crutches versus a walking boot. She would much prefer to use an Aircast however if she does not show improvement over the next couple days I would prefer a walking boot rather to ongoing use of crutches. SIGNATURE: Junito Mason MD PATIENT NAME: Lenard Contreras DATE: August 15, 2022 TIME: 9:23 [facility]01-[facility] History of Present illness Narrative* Junito Mason MD - 08/15/2022 9:23 AM EST PEDIATRIC ELIZONDO/ANKLE/FOOT INJURY VISIT SERVICE DATE: 08/15/2022 Lenard Contreras is a 17 year old female accompanied by father presenting with injury to her left ankle(s). HPI: Date of the injury or when pain began: last night History of the injury: Was jumping in a [place] and then landed on on inverted foot Able to ambulate: No- was able to just after injury but not now Bruising: Yes Swelling: Yes Numbness/Tingling: Yes Radiation of the pain: No Pain is made worse by: touching skin or weight bearing Pain is relieved by: rest Treatment attempted: ice Night pain: Yes Pain since injury: worse Prior injuries to this area: None Past Medical History: Prior stress fracture: No Prior ankle sprains: No Family History: Rheumatologic issue: No Arthritis: No Stress fracture: No FAMILY HISTORY Problem Relation Age of Onset Allergies Mother None Father Diabetes Father Cousin-juvenile diabetes Cancer Father Great aunt-Small cell lumg ROS: Redness/swelling of other joints: No New or atypical rashes: No Physical exam: BP (P) 102/66 Pulse (P) 68 Temp (P) 37 C (98.6 F) (Temporal) Resp (P) 16 Wt (P) 69.3 kg (152 lb 12.8 oz) LMP 08/11/2022 General: Well developed, No acute distress Musculoskeletal: Elizondo: bruising noted on the left medial mid elizondo Ankle: swelling, tender upon palpation over medial malleolus, lateral malleolus, and ATFL, and unable to bear weight Foot: symmetric Gait: Using crutches and unable to bear weight on the left Neuro: Sensation intact to light touch and intact to pain; ankle jerk reflex + Skin: Normal color, texture and turgor. No rashes. Xrays: Left ankle Assessment/Plan: Encounter Diagnosis ICD-10-CM 1. Sprain of left ankle, unspecified ligament, initial encounter S93.402A XR ANKLE GENERAL 3V AP/LAT/OBL LEFT - Ice-15 minutes three times per day - Wvddu-[id number]-wvr was able to stand and bear some weight but not walk on the left ankle. - Ibuprofen as needed -I discussed using an Aircast and crutches versus a walking boot. She would much prefer to use an Aircast however if she does not show improvement over the next couple days I would prefer a walking boot rather to ongoing use of crutches. SIGNATURE: Junito Mason MD PATIENT NAME: Lenard Contreras DATE: August 15, 2022 TIME: 9:23 AM documented in this encounterCleveland Clinic [facility] Hospital01-27-2023 Instructions* Patient Instructions* Junito Mason MD - 08/15/2022 9:23 AM EST 5 to Go!TM Healthy Kids Inside & Out 5 Eat FIVE fruits and veggies a day 4 Give and get FOUR compliments a day 3 Consume THREE calcium products a day 2 Limit media time to TWO hours a day 1 Get at least ONE hour of exercise a day 0 Consume ZERO sugar-sweetened drinks Go! Be healthy, inside and out! [email or web address] documented in this encounterCleveland Clinic [facility]11-15-2022 History of Present illness Narrative* Shameka Saucedo MD - 06/03/2022 2:33 PM EST Patient brought in today by mother presents today to recheck anxiety, weight and abdominal pain. No further weight loss since last appt. Eating more protein and a better balance of food. Musical ends in one week. 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 Anxiety seems a bit better now. Lenard and her mother agree that she is most anxious when approaching moments of change, like the start of the school year, the end of the musical, etc. Sleeping well Has a h/o episodic abdominal pain for the past year. Episodes last up to a week. Pain is both dull and sometimes crampy. She sometimes has nausea and bloating, no emesis. No blood in stools. Stools occur about q 1-3 days. Sometimes small and hard. Abdominal pain episodes may coincide with moments of stress/anxiety. Still unsure if lactose is a problem. Trying to limit lactose, but loves cheese Started culturelle probiotic Celiac, TFTs and CBC were all reassuring/normal. PHQ9 is 4 and GAD7 is 9. ROS Gen: no fevers or change in weight Resp; no cough GI; no diarrhea, emesis or bloody stools PAST MEDICAL HISTORY Diagnosis Date Jaundice at NEGATIVE MEDICAL HISTORY normal color vision Period disorder 01/19/2019 Current Outpatient Medications on File Prior to Visit Medication Sig Azelaic Acid 15 % gel iron bis-gly/FA/C/B12/Ca/succ (IRON 21/7 ORAL) Take 1 Dose Pack by mouth once daily. (Patient not taking: Reported on 05/12/2022) albuterol HFA (PROVENTIL HFA, VENTOLIN HFA) 90 mcg/actuation inhaler Inhale 2 Puffs as instructed every 4 hours as needed for wheezing/shortness of breath. fluticasone (FLONASE) 50 mcg/actuation nasal spray Use 1 [place] in each nostril daily at bedtime. loratadine (CLARITIN) 10 mg tablet Take 10 mg by mouth once daily. Using as needed No current facility-administered medications on file prior to visit. FMH: MGGM needed surgery for intestinal obstruction when older, and she had stomach ulcers. MGM andcousins have lactose intolerance. No IBS. Mother and grandmothers have anxiety. GENERAL: alert and active in no apparent distress EYES: conjunctiva clear, no drainage NOSE/SINUSES : no drainage OROPHARYNX:moist mucous membranes, tonsils without hypertrophy, and no exudates present NECK: supple, no adenopathy CARDIOVASCULAR : Regular Rate and Rhythm without murmurs or clicks LUNGS: clear to auscultation ABDOMEN : Abdomen is soft, nontender, without organomegaly or masses. ASSESSMENT: Episodic abdominal pain - differential includes anxiety/functional, constipation. Less likely is food intolerance, as she can sometimes eat those foods and not have pain as well Anxious mood PLAN: For next episode of pain, pay attention to mood. Consider benefiber and limiting lactose with next episode of pain. Call if Sx worsen Start therapy I spent a total of 30 minutes on the date of the service which included preparing to see the patient, [id number] patient care, completing clinical documentation, obtaining and/or reviewing separately obtained history, performing a medically appropriate examination, and counseling and educating the patient/family/caregiver. Shameka Saucedo MD documented in this encounterCleveland Clinic [facility]10-27-2022 Miscellaneous Notes* Telephone Encounter - Jackie Buck RN - 05/15/2022 8:37 AM EDT mother aware Jackie Buck RN * Telephone Encounter - Evelyne Amezcua RN - 05/15/2022 8:32 AM EDT Left message to call the office Evelyne Amezcua RN * Telephone Encounter - Shameka Saucedo MD - 05/15/2022 8:01 AM EDT Please notify parent that pt's labs are normal/reassuring Shameka Saucedo MD documented in this encounterCleveland Clinic Mercy Hospital10-24-2022 History of Present illness Narrative* Shameka Saucedo MD - 05/12/2022 8:23 PM EDT Patient brought in today by mother presents today with maternal concern about possible disordered eating. Lenard has lost 50lb in the past 2 years. She and her mother agree that fear of gaining wt marilynn desire to lose weight is taking up a greater amount of mental space lately. Lenard reports feeling anxiety in general, but extra anxiety about issues related to weight and food. Mother is concerned that Lenard is limiting food too much. She has limited most carbs. Used to exercise by running 1.5-3 miles a few times a week, but this has not been possible due to busy schedule. Will be the lead in school musical in a few wks. Works at [employer] for [employer] just ended. ROS Gen; + fatigue at times Endo: periods are mostly regular, having at least 10 per year CV: gets lightheaded with prolonged standing in choir, no LOC GI: gets upset stomach sometimes, suspects lactose intolerance PAST MEDICAL HISTORY Diagnosis Date Jaundice at NEGATIVE MEDICAL HISTORY normal color vision Period disorder 01/19/2019 Current Outpatient Medications on File Prior to Visit Medication Sig albuterol HFA (PROVENTIL HFA, VENTOLIN HFA) 90 mcg/actuation inhaler Inhale 2 Puffs as instructed every 4 hours as needed for wheezing/shortness of breath. fluticasone (FLONASE) 50 mcg/actuation nasal spray Use 1 Hampton in each nostril daily at bedtime. loratadine (CLARITIN) 10 mg tablet Take 10 mg by mouth once daily. Using as needed Azelaic Acid 15 % gel iron bis-gly/FA/C/B12/Ca/succ (IRON 21/7 ORAL) Take 1 Dose Pack by mouth once daily. (Patient not taking: Reported on 05/12/2022) No current facility-administered medications on file prior to visit. GENERAL: alert and active in no apparent distress CARDIOVASCULAR : Regular Rate and Rhythm without murmurs or clicks LUNGS: clear to auscultation ABDOMEN : Abdomen is soft, nontender, without organomegaly or masses. ASSESSMENT: Weight loss and disordered eating PLAN: Per orders. Recommend nutrition and psychology as per instructions F/u in 3-4 wks to discuss GI issues and f/u on anxiety Shameka Saucedo MD documented [facility] encounter[facility] Miscellaneous Notes* Telephone Encounter - Rose Dawson RN - 05/12/2022 2:50 PM EDT Mother notified and voiced understanding of below as directed by Dr. Saucedo. Rose Dawson RN * Telephone Encounter - Shameka Saucedo MD - 05/12/2022 2:44 PM EDT Please notify parent that pt's EKG showed a common variant (when read by the com writer), so thismay show up on My Chart. It was read as low right atrial rhythm. I asked a com writer about it, and he said it's a common variant, and does not need cardiology follow up Shameka Saucedo MD documented in this encounterC[facility] Instructions* Patient Instructions* Shameka Saucedo MD - 05/12/2022 12:34 PM EDT Schedule an appt with try out person. Stacy Saab is excellent - Leonie Medel is an excellent therapist who specializes in eating disorders documented in this encounterC[facility]03-24-[facility]22 History of Present illness Narrative* Junito Mason MD - 10/10/2021 8:54 AM EDT PEDIATRIC SICK VISIT SERVICE DATE: 10/10/2021 Patient interviewed and examined with completely independent history and physical at bedside. Note above edited to reflect my findings and plan Junito Mason MD SUBJECTIVE: Lenard Contreras is a 16 year old female accompanied by father for evaluation of Lightheadedness with standing. History was obtained from: father and patient Lenard reports lightheadedness with standing x3 months. It occurs almost every time she goes from sitting to standing, denies relation to time of day, activity, or eating. Denies syncope. Started taking iron approximately 2 months ago because she and parents thought lightheadedness may be related to her periods, states that this has helped a little. Periods are typically 5 days long and heavy for 1-2 days. Denies prolonged heavy bleeding or bleeding through clothing. Reports that last night she experienced some L sided chest discomfort, states it was an aching painthat lasted 2-3 seconds and then went away. It happened twice more last night but not again since. Denies feelings of palpitations or heart racing, SOB, or dizziness with the pain. Patient states that she drinks approximately 2-3 32oz water bottles per day. Average amount of sodium in diet per day, does not eat fast food and has adopted healthier diet andexercise habits over the past 18 months. Patient has intentionally lost 30lbs since February 2020. Smoking Exposure: Does your child spend a significant amount of time in the care of anyone who smokes? No HISTORY: ACTIVE PROBLEM LIST Flat Feet PAST MEDICAL HISTORY Diagnosis Date Jaundice at NEGATIVE MEDICAL HISTORY normal color vision Period disorder 01/19/2019 PAST SURGICAL HISTORY Procedure Laterality Date NONE Allergies: ALLERGIES Allergen Reactions Cats Cough Dust Cough Seasonal Allergies Cough Medications: iron bis-gly/FA/C/B12/Ca/succ (IRON 21/ ORAL) Take 1 Dose Pack by mouth once daily. albuterol HFA (PROVENTIL HFA, VENTOLIN HFA) 90 mcg/actuation inhaler Inhale 2 Puffs as instructed every 4 hours as needed for wheezing/shortness of breath. fluticasone (FLONASE) 50 mcg/actuation nasal spray Use 1 Hampton in each nostril daily at bedtime. loratadine (CLARITIN) 10 mg tablet Take 10 mg by mouth once daily. Using as needed Azelaic Acid 15 % gel REVIEW OF SYSTEMS: GENERAL: Negative for fevers HEENT: Negative for congestion or rhinorrhea. RESPIRATORY: Negative for wheezing or respiratory distress GI: Negative for vomiting or diarrhea. SKIN: Negative for lesions, rash, and itching. CARDIOVASCULAR: Positive for chest pain and lightheadedness OBJECTIVE: Temp 36.2 C (97.2 F) (Temporal Artery) Resp 16 Wt 74 kg (163 lb 4 oz) LMP 09/22/2021 General: alert and active in no apparent distress Eyes: conjunctiva clear, PERRL Ears: TMs translucent: bilaterally Nose: no erythema or exudate OP: moist without lesions Neck: supple, no adenopathy Lungs: clear to auscultation bilaterally, good air exchange, no retractions CVS: Normal rate, regular rhythm, no murmur Abdomen: soft, nondistended, nontender, no hepatosplenomegaly or masses Skin: No rashes, lesions or skin changes Neuro: No focal deficits or abnormal findings present ASSESSMENT/PLAN: Encounter Diagnosis ICD-10-CM 1. Orthostatic hypotension I95.1 At this time, will encourage adequate fluid intake as well as increased sodium to help with orthostatic hypotension. If symptoms persist despite fluids and increased sodium, could check iron and electrolytes. Recent chest pain sounds like a musculoskeletal issue and not a possible arrhythmia since she has no associated symptoms or feelings of skipped beats or fluttering and no associated dizziness, lightheadedness, or SOB. No further action needed at this time. - Continue to drink current amount of water - Continue on current iron supplementation - Increase sodium in diet - If exercising vigorously for 1 hour or more, drink sports drink instead of water to help replace electrolytes. - Stand slowly, do not lock knees when standing for a prolonged period of time SIGNATURE: Junito Mason MD PATIENT NAME: Lenard Contreras DATE: October 10, 2021 TIME: 8:54 AM documented in this encounterC[facility]10-[facility] History of Past illness Narrative* Problem Noted Date Resolved Date Mild intermittent asthma without complication 03/03/2019 documented as of this encounter (statuses as of 10/10/2021) [facility] of Past illness Narrative* Problem Noted Date Resolved Date Mild intermittent asthma without complication 03/03/2019 documented as of this encounter (statuses as of 05/12/2022) [facility] of [facility] illness Narrative* Problem Noted Date Resolved Date Mild intermittent asthma without complication 03/03/2019 documented as of this encounter (statuses as of 05/13/2022) [address]28-2015 History of Past illness Narrative* Problem Noted Date Resolved Date Mild intermittent asthma without complication 03/03/2019 documented as of this encounter (statuses as of 05/15/2022) [address]28-2015 History of Past illness Narrative* Problem Noted Date Resolved Date Mild intermittent asthma without complication 03/03/2019 documented as of this encounter (statuses as of 06/03/2022) [address]28-2015 History of Past illness Narrative* Problem Noted Date Resolved Date Mild intermittent asthma without complication 03/03/2019 documented as of this encounter (statuses as of 08/15/2022) [address]28[address]2015 History of Past illness Narrative* Problem Noted Date Resolved Date Mild intermittent asthma without complication 03/03/2019 documented as of this encounter (statuses as of 12/19/2022) [address]28-2015 History of Past illness Narrative* Problem Noted Date Resolved Date Mild intermittent asthma without complication 03/03/2019 documented as of this encounter (statuses as of 12/30/2022) [facility] Narrative* Problem Noted Date Resolved Date Mild intermittent asthma without complication 03/03/2019 documented as of this encounter (statuses as of 01/03/2023) [facility] Narrative* Problem Noted Date Resolved Date Mild intermittent asthma without complication 03/03/2019 documented as of this encounter (statuses as of 01/12/2023) [address]2015 History of Past illness Narrative* Problem Noted Date Resolved Date Mild intermittent asthma without complication 03/03/2019 documented as of this encounter (statuses as of 01/14/2023) [facility] Narrative* Problem Noted Date Diagnosed Date Resolved Date Mild intermittent asthma without complication 05/16/2003/03/2019 documented as of this encounter (statuses as of 03/10/2023) [facility] Narrative* Problem Noted Date Diagnosed Date Resolved Date Mild intermittent asthma without complication 05/16/20 15 03/03/2019 documented as of this encounter (statuses as of 06/12/2023) [facility] of [facility] Narrative* Problem Noted Date Diagnosed Date Resolved Date Mild intermittent asthma without complication 05/16/20 15 03/03/2019 documented as of this encounter (statuses as of 07/03/2023) [facility] note* Diagnosis Orthostatic hypotension- Primary documented in this encounter [facility]* Diagnosis Weight loss- Primary Loss of weight Anxious mood Anxiety state, unspecified documented in this encounter [facility] note* Diagnosis Chronic generalized abdominal pain- Primary Abdominal pain, generalized Anxious mood Anxiety state, unspecified documented in this encounter [facility] note* Diagnosis Sprain of left ankle, unspecified ligament, initial encounter- Primary documented in this encounter [facility] note* Diagnosis Sprain of left ankle, unspecified ligament, subsequent encounter- Primary documented in this encounter [facility] note* Diagnosis Hand, foot, mouth disease- Primary documented in this encounter [facility]* Diagnosis Epigastric pain- Primary Abdominal pain, epigastric documented in this encounter [facility] note* Diagnosis Encounter for routine child health examination without abnormal findings- Primary Routine infant or child health check documented in this encounter [facility] noteNo assessment information availableWKettering [facility] Work Phone: Evaluation note* Diagnosis Generalized abdominal pain- Primary Abdominal pain, generalized documented in this encounter [facility] Work Phone: Evaluation note* Diagnosis Pain- Primary Generalized pain documented in this encounter [facility] note* Diagnosis Sprain of anterior talofibular ligament of left ankle, subsequent encounter- Primary Ankle weakness Other symptoms referable to ankle and foot joint documented [facility] this encounter [facility]* Diagnosis Generalized abdominal pain Abdominal pain, generalized documented in this encounter [facility] Work Phone: Evaluation note* Diagnosis Generalized abdominal pain Abdominal pain, generalized documented in this encounter [facility] Work Phone: Evaluation note* Diagnosis Generalized abdominal pain- Primary Abdominal pain, generalized Gastroesophageal reflux disease without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
[2025-06-16 11:57] LABS: Hematocrit 40.0 % (37-47); Hemoglobin 13.4 g/dL (12.0-15.0); Mean Corp Hgb Conc 33.5 g/dL (32-36); Mean Corpuscular Volume 91.1 fL (81-99); Mean Platelet Vol. 9.4 fl (6.2-12.0); Platelet Count 265 K/mm3 (150-450); RBC Distribution Width CV 11.9 % (11.6-14.6); RBC Distribution Width SD 39.7 fl (35.1-43.9); Red Blood Count 4.39 M/mm3 (4.2-5.4); White Blood Count 5.0 K/mm3 (4.4-11.0)
[2025-06-16 12:19] LABS: CORTISOL AM 14.80 ug/dL (6.02-18.40); Ferritin 152 ng/mL (22-378); Iron 87 ug/dL (50-170); Iron Binding Capacity,Unsat 141 ug/dL (228-428)
[2025-06-16 12:44] LABS: Cholesterol 170 mg/dL (<=190); Low Density Lipoprotein Calc. 102 mg/dL; Triglycerides 45 mg/dL; Very Low Density Lipoprotein 9 mg/dL (5-40); cholesterol:hdl ratio screen 2.90
[2025-06-16 12:52] LABS: Iron Binding Capacity,Total 228 ug/dL (250-450)
== END | disposition home or self-care (01) ==
PROVIDERS: PCP Family Medicine; Referring Provider Family Medicine; Visit Provider Family Medicine
DX: Z13.220 Encounter for screening for lipoid disorders (principal); R42 Dizziness and giddiness; E61.1 Iron deficiency; Z13.1 Encounter for screening for diabetes mellitus; R53.83 Other fatigue
CPT/HCPCS: 36415; 80061; 82533; 82728; 83036; 83540; 83550; 84439; 84443; 85027